=== PATIENT | male | born 1940 ===

== ENCOUNTER 2021-11-03 15:53 | Inpatient (IN) | payer BC, OTHER, SELFPAY ==
[2021-11-03] VITALS (8 sets, daily range): BP systolic 109–139; BP diastolic 56–86; PULSE 75–88; RESP 16–18; TEMP 36.5–36.9; O2SAT 98–100; BMI 19.9
--- NOTE | 2021-11-03 | ECG_ITS ---
Test Reason : ? STROKE Blood Pressure : / mmHG Vent. Rate : 073 BPM Atrial Rate : 073 BPM P-R Int : 126 ms QRS Dur : 080 ms QT Int : 360 ms P-R-T Axes : 025 007 061 degrees QTc Int : 396 ms Normal sinus rhythm Inferior infarct (cited on or before 27-SEP-2003) Abnormal ECG When compared with ECG of 27-SEP-2003 14:19, No significant change was found Referred By: Óscar Pascal Electronically Signed By:TEDDY BROUSSARD
--- NOTE | ~2021-11-03 | CT_ITS ---
EXAMINATION: CT HEAD WITHOUT CONTRAST (STROKE PROTOCOL) CLINICAL INFORMATION: Stroke protocol. Weakness. Fatigue. COMPARISON: None TECHNIQUE: Contiguous axial imaging was performed from the skull base to vertex without intravenous administration of contrast. This CT examination was performed using dose optimization techniques as appropriate, variously including the following: *Automated exposure control *Adjustment of mA and/or kV according to patient size (this includes techniques or standardized protocols for targeted exams where dose is matched to indication/reason for exam; i.e. extremities or head) *Use of iterative reconstruction technique DLP: 587 mGy-cm FINDINGS: There is no evidence of an extra-axial collection. There is no evidence of intra-axial or extra-axial hemorrhage. The ventricles and extra-axial CSF spaces are prominent suggestive of generalized atrophy. There is nonspecific periventricular white matter disease. There is a left basal ganglia or anterior limb internal capsule lacunar infarct. No exams are available for comparison and this is age indeterminate. No other infarct is seen. No mass or mass effect is seen. Review at bone windows is unremarkable. Visualized paranasal sinuses, mastoid air cells and middle ears are clear. CT/CT head for stroke IMPRESSION: Generalized atrophy and nonspecific periventricular white matter disease. 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 No prior exams are available for comparison and this is age indeterminate. This critical result was discussed with Dr Pascal at 4:30 PM on 11/03/2021. It was ascertained that the content and urgency of the report was understood at the time of direct communication.
--- NOTE | 2021-11-03 16:25 | ED_ITS ---
HPI - General Adult General Chief complaint: Altered Mental Status <DAVIDA Green - Last Filed: 11/03/21 21:59> Stated complaint: ?Stroke <DAVIDA Green - Last Filed: 11/03/21 21:59> Time Seen by Provider: 11/03/21 16:10 <DAVIDA Green - Last Filed: 11/03/21 21:59> Source: patient and family <DAVIDA Green - Last Filed: 11/03/21 21:59> Mode of arrival: ambulatory <DAVIDA Green - Last Filed: 11/03/21 21:59> Limitations: no limitations <DAVIDA Green - Last Filed: 11/03/21 21:59> History of Present Illness HPI narrative: This is an 81-year-old male pmhx dementia, diabetes, hypertension presenting to the emergency department with an episode of weakness, shaking, diaphoresis, chest pain that occurred about 45 minutes ago. According to patient patient's family he was sitting down and he suddenly started to feel strange he tells me that at this time he feels a little bit better however he still has a lot of weakness. Tells me that the chest pain was substernal in nature, nonradiating, lasting a few seconds, severe. He tells me that at this time he is only weak, does not have any chest pain. He is a diabetic and they checked his sugar at home and it was normal when this happened. He denies shor tness of breath, nausea, vomiting, fevers, chills, recent upper respiratory infection, vision changes, dizziness. Patient has had ?mini strokes in the past according to family in [place] he had 2 of them. However there presentation was much different than today's presentation. Patient has no history of seizures. <DAVIDA Green Last Filed: 11/03/21 21:59> Onset (ago): minute(s) (45) <DAVIDA Green Last Filed: 11/03/21 21:59> Location: chest <DAVIDA Green Last Filed: 11/03/21 21:59> Radiation: non-radiation <DAVIDA Green - Last Filed: 11/03/21 21:59> Severity: severe <DAVIDA Green - Last Filed: 11/03/21 21:59> Quality: stabbing <DAVIDA Green - Last Filed: 11/03/21 21:59> Pain Consistency: now resolved <DAVIDA Green - Last Filed: 11/03/21 21:59> Relieving factors: none <DAVIDA Green - Last Filed: 11/03/21 21:59> Exacerbating factors: none <DAVIDA Green - Last Filed: 11/03/21 21:59> Associated symptoms: denies other symptoms <DAVIDA Green - Last Filed: 11/03/21 21:59> Treatments prior to arrival: none <DAVIDA Green - Last Filed: 11/03/21 21:59> Related Data Allergies/adverse reactions: Allergies Allergy/AdvReac Type Severity Reaction Status Date / Time Unable to Assess Allergy Verified 11/03/21 16:44 <DAVIDA Green - Last Filed: 11/03/21 21:59> Review of Systems Review of Systems: Constitutional : No Weight loss, No Fever, No Chills, + Fatigue, + Malaise ENT/Mouth : No sore throat, No Rhinorrhea Eyes: No Eye Pain, No Swelling, No Redness Cardiovascular : + Chest Pain, No SOB, No Dyspnea on Exertion, No Orthopnea, No Edema, No Palpitations Respiratory : No Cough, No Sputum, No Wheezing Gastrointestinal : No Nausea, No Vomiting, No Diarrhea, No Constipation, No abdominal Pain, No Hematochezia, No Melena Genitourinary : No Dysuria, No Urinary Frequency, No Hematuria, Musculoskeletal : No joint pain, No Myalgias, No Joint Swelling Skin : No Skin Lesions, No rash Neuro : No Weakness, No Numbness, No Dizziness, No Headache Psych : No Anxiety/Panic, No Depression All other systems reviewed and are negative <DAVIDA Green Last Filed: 11/03/21 21:59> PMFSH Past Medical History Attestation statement: The following information was validated with the patient. <DAVIDA Green - Last Filed: 11/03/21 21:59> Source: old records reviewed and nursing notes reviewed <DAVIDA Green - Last Filed: 11/03/21 21:59> Medical History: Medical History (Updated 11/03/21 @ 21:44 by DAVIDA Green) Dementia Diabetes HTN (hypertension) <DAVIDA Green - Last Filed: 11/03/21 21:59> Social History Social History: Social History Advance Directives: No Advance Directives Information Provided: Yes <DAVIDA Green - Last Filed: 11/03/21 21:59> Physical Exam ED Vital Signs: Vital Signs - 24 hr 11/03/21 16:08 11/03/21 16:42 11/03/21 16:47 Temperature 98.5 F Pulse Rate 75 77 77 Respiratory Rate 18 18 18 Blood Pressure 112/60 109/61 115/56 L Pulse Oximetry 99 98 99 11/03/21 18:15 11/03/21 18:18 11/03/21 18:20 Temperature 97.7 F Pulse Rate 82 81 88 Respiratory Rate 16 Blood Pressure 122/86 137/71 139/68 Pulse Oximetry 100 11/03/21 18:22 Temperature Pulse Rate 83 Respiratory Rate Blood Pressure 135/72 Pulse Oximetry BMI result Body Mass Index 19.9 VSS <DAVIDA Green - Last Filed: 11/03/21 21:59> Vital Signs - 24 hr 11/03/21 16:08 11/03/21 16:42 11/03/21 16:47 Temperature 98.5 F Pulse Rate 75 77 77 Respiratory Rate 18 18 18 Blood Pressure 112/60 109/61 115/56 L Pulse Oximetry 99 98 99 11/03/21 18:15 11/03/21 18:18 11/03/21 18:20 Temperature 97.7 F Pulse Rate 82 81 88 Respiratory Rate 16 Blood Pressure 122/86 137/71 139/68 Pulse Oximetry 100 11/03/21 18:22 Temperature Pulse Rate 83 Respiratory Rate Blood Pressure 135/72 Pulse Oximetry BMI result Body Mass Index 19.9 <Ben Chang MD - Last Filed: 11/03/21 17:22> Appearance: Alert.? Oriented X3.? No acute distress.? Head: Normocephalic, atraumatic, no step-offs or deformities Eyes: Pupils equal, round and reactive to light.? ENT: Pharynx normal.? Neck: Normal inspection.? Neck supple.? CVS: Normal heart rate and rhythm.? Pulses normal.? Respiratory: No respiratory distress.? Breath sounds normal.? Abdomen: Soft and nontender.? Skin: Skin warm and dry.? Normal skin color.? Normal skin turgor.? Extremities: No lower extremity edema.? No calf ttp. Patient diffusely weak. Back: No midline tenderness, no C-spine tenderness, full range of motion, no CVA tenderness bilaterally Neuro: Oriented X 3.? No motor deficit.? No sensory deficit. CN 2-12 intact. Normal [id number], [id number]. <DAVIDA Green - Last Filed: 11/03/21 21:59> Course Reevaluation(s) Reevaluation #1: The event that brought the patient here does not sound like stroke and he has a nonfocal exam. The CT shows age indeterminant left basal ganglia lacunar infarct. <DAVIDA Green - Last Filed: 11/03/21 21:59> The event that brought the patient here does not sound like stroke and he has a nonfocal exam. The CT shows age indeterminant left basal ganglia lacunar infarct. <Ben Chang MD - Last Filed: 11/03/21 17:22> Reevaluation #2: CT results were shared with my attending . Reached out to Neurology who recommends aspirin to find other causative agents. <DAVIDA Green - Last Filed: 11/03/21 21:59> Time: 17:32 <DAVIDA Grene - Last Filed: 11/03/21 21:59> Reevaluation #3: Second trop doubled the delta. Spoke to cardiology about patients case who recommend dose of lovenox. Patient tellls me he still has discomfort in his chest but not pain. Plan to admit patient <DAVIDA Green - Last Filed: 11/03/21 21:59> Time: 21:43 <DAVIDA Green - Last Filed: 11/03/21 21:59> Additional Reevaluation(s): Reports CP completely subsided. Hospitalist will admit patient Dr. Mackaybarbararaffi. <DAVIDA Green - Last Filed: 11/03/21 21:59> Medical Decision Making MDM Narrative Medical decision making narrative: 1610 81 yo m pmhx dementia, diabetes, hypertension presenting to the emergency department with an episode of weakness, shaking, diaphoresis, chest pain that occurred about 45 minutes ago PE significant for generalized weakness. No focal neuro deficits Cerbellar function intact unlikely posterior stroke. Plan- poc, urine, ct head,labs <DAVIDA Green - Last Filed: 11/03/21 21:59> Medical Records Medical records reviewed: Yes I reviewed the patient's medical records. <DAVIDA Green - Last Filed: 11/03/21 21:59> Lab Data Lab results reviewed: Yes I reviewed the patient's lab results. <DAVIDA Green - Last Filed: 11/03/21 21:59> Result diagrams: : 11/03/21 17:01 11/03/21 17:01 <DAVIDA Green - Last Filed: 11/03/21 21:59> Labs: Lab Results 11/03/21 11/03/21 11/03/21 Range/Units 17:01 17:01 17:01 WBC 9.1 (4.8-10.8) X10*3/uL RBC 4.79 (4.60-5.80) X10*6/uL Hgb 14.3 (14.0-18.0) g/dl Hct 45.2 (42.0-52.0) % MCV 94.4 (80.0-98.0) fL MCH 29.9 (27.0-33.0) pg MCHC 31.6 (31.0-36.0) g/dl RDW 15.1 (11.0-16.0) % Plt Count 206 (160-400) X10*3/uL MPV 10.6 (9.4-12.4) fL Immature Gran % (Auto) 0.3 (0.0-0.4) % Neut % (Auto) 77.1 H (45-73) % Lymph % (Auto) 12.4 L (20-40) % [place] % (Auto) 6.7 (2-11) % Eos % (Auto) 3.1 (0-4) % Baso % (Auto) 0.4 (0-2) % Lymph # (Auto) 1.1 L (1.2-4.9) X10*3/uL [place] # (Auto) 0.6 (0.1-1.2) X10*3/uL Eos # (Auto) 0.3 (0.0-0.4) X10*3/uL Baso # (Auto) 0.0 (0.0-0.2) X10*3/uL Abs Immat Gran (auto) 0.03 (0.00-0.03) X10*3/uL Absolute Neuts (auto) 7.0 (2.0-8.3) x10*3/uL Absolute Nucleated RBC 0.000 (0.0-0.012) X10*3/uL Nucleated RBC % (auto) 0.0 (0.0-0.2) /100WBC Sodium 143 (135-145) mmol/L Potassium 4.3 (3.3-5.1) mmol/L Chloride 107 (96-108) mmol/L Carbon Dioxide 26 (22-29) mmol/L Anion Gap 14 (12-20) BUN 26 H (9-16) mg/dL Creatinine 1.09 (0.5-1.4) mg/dL Estim Creat Clear Calc 43.1 Estimated GFR > 60 Random Glucose 147 H (60-115) mg/dL Calcium 10.0 (8.4-10.2) mg/dL Magnesium 2.1 (1.6-2.6) mg/dL Total Bilirubin 0.8 (0.0-1.0) mg/dL AST 23 (5-37) U/L ALT 19 (0-40) U/L Alkaline Phosphatase 83 (39-117) U/L Troponin I High Sens 10.9 (<3.5-35.0) ng/L B-Natriuretic Peptide 53 (<100) pg/mL Total Protein 7.9 (6.5-8.0) g/dL Albumin 3.9 (3.5-5.0) g/dL Urine Color Urine Appearance Urine pH (5.0-8.0) Ur Specific [place] (1.005-1.025) Urine Protein (NEG-TRACE) MG/DL Urine Glucose (UA) (NEG) MG/DL Urine Ketones (NEG) MG/DL Urine Blood (NEG) Urine Nitrite (NEG) Ur Leukocyte Esterase (NEG) COVID-19 ([facility]ALKER) (Negative) COVID-19 Clin Com 11/03/21 11/03/21 11/03/21 Range/Units 17:01 18:08 20:41 WBC (4.8-10.8) X10*3/uL RBC (4.60-5.80) X10*6/uL Hgb (14.0-18.0) g/dl Hct (42.0-52.0) % MCV (80.0-98.0) fL MCH (27.0-33.0) pg MCHC (31.0-36.0) g/dl RDW (11.0-16.0) % Plt Count (160-400) X10*3/uL MPV (9.4-12.4) fL Immature Gran % (Auto) (0.0-0.4) % Neut % (Auto) (45-73) % Lymph % (Auto) (20-40) % [place] % (Auto) (2-11) % Eos % (Auto) (0-4) % Baso % (Auto) (0-2) % Lymph # (Auto) (1.2-4.9) X10*3/uL [place] # (Auto) (0.1-1.2) X10*3/uL Eos # (Auto) (0.0-0.4) X10*3/uL Baso # (Auto) (0.0-0.2) X10*3/uL Abs Immat Gran (auto) (0.00-0.03) X10*3/uL Absolute Neuts (auto) (2.0-8.3) x10*3/uL Absolute Nucleated RBC (0.0-0.012) X10*3/uL Nucleated RBC % (auto) (0.0-0.2) /100WBC Sodium (135-145) mmol/L Potassium (3.3-5.1) mmol/L Chloride (96-108) mmol/L Carbon Dioxide (22-29) mmol/L Anion Gap (12-20) BUN (9-16) mg/dL Creatinine (0.5-1.4) mg/dL Estim Creat Clear Calc Estimated GFR Random Glucose (60-115) mg/dL Calcium (8.4-10.2) mg/dL Magnesium (1.6-2.6) mg/dL Total Bilirubin (0.0-1.0) mg/dL AST (5-37) U/L ALT (0-40) U/L Alkaline Phosphatase (39-117) U/L Troponin I High Sens 39.4 H D (<3.5-35.0) ng/L B-Natriuretic Peptide (<100) pg/mL Total Protein (6.5-8.0) g/dL Albumin (3.5-5.0) g/dL Urine Color YELLOW Urine Appearance CLEAR Urine pH 6.5 (5.0-8.0) Ur Specific [place] 1.020 (1.005-1.025) Urine Protein TRACE (NEG-TRACE) MG/DL Urine Glucose (UA) NEG (NEG) MG/DL Urine Ketones NEG (NEG) MG/DL Urine Blood NEG (NEG) Urine Nitrite NEG (NEG) Ur Leukocyte Esterase NEG (NEG) COVID-19 ([facility]ALKER) Negative (Negative) COVID-19 Clin Com See Note <DAVIDA Green - Last Filed: 11/03/21 21:59> Lab Results 11/03/21 11/03/21 11/03/21 Range/Units 17:01 17:01 17:01 WBC 9.1 (4.8-10.8) X10*3/uL RBC 4.79 (4.60-5.80) X10*6/uL Hgb 14.3 (14.0-18.0) g/dl Hct 45.2 (42.0-52.0) % MCV 94.4 (80.0-98.0) fL MCH 29.9 (27.0-33.0) pg MCHC 31.6 (31.0-36.0) g/dl RDW 15.1 (11.0-16.0) % Plt Count 206 (160-400) X10*3/uL MPV 10.6 (9.4-12.4) fL Immature Gran % (Auto) 0.3 (0.0-0.4) % Neut % (Auto) 77.1 H (45-73) % Lymph % (Auto) 12.4 L (20-40) % [place] % (Auto) 6.7 (2-11) % Eos % (Auto) 3.1 (0-4) % Baso % (Auto) 0.4 (0-2) % Lymph # (Auto) 1.1 L (1.2-4.9) X10*3/uL [place] # (Auto) 0.6 (0.1-1.2) X10*3/uL Eos # (Auto) 0.3 (0.0-0.4) X10*3/uL Baso # (Auto) 0.0 (0.0-0.2) X10*3/uL Abs Immat Gran (auto) 0.03 (0.00-0.03) X10*3/uL Absolute Neuts (auto) 7.0 (2.0-8.3) x10*3/uL Absolute Nucleated RBC 0.000 (0.0-0.012) X10*3/uL Nucleated RBC % (auto) 0.0 (0.0-0.2) /100WBC Sodium 143 (135-145) mmol/L Potassium 4.3 (3.3-5.1) mmol/L Chloride 107 (96-108) mmol/L Carbon Dioxide 26 (22-29) mmol/L Anion Gap 14 (12-20) BUN 26 H (9-16) mg/dL Creatinine 1.09 (0.5-1.4) mg/dL Estim Creat Clear Calc 43.1 Estimated GFR > 60 Random Glucose 147 H (60-115) mg/dL Calcium 10.0 (8.4-10.2) mg/dL Magnesium 2.1 (1.6-2.6) mg/dL Total Bilirubin 0.8 (0.0-1.0) mg/dL AST 23 (5-37) U/L ALT 19 (0-40) U/L Alkaline Phosphatase 83 (39-117) U/L Troponin I High Sens 10.9 (<3.5-35.0) ng/L B-Natriuretic Peptide 53 (<100) pg/mL Total Protein 7.9 (6.5-8.0) g/dL Albumin 3.9 (3.5-5.0) g/dL Urine Color Urine Appearance Urine pH (5.0-8.0) Ur Specific [place] (1.005-1.025) Urine Protein (NEG-TRACE) MG/DL Urine Glucose (UA) (NEG) MG/DL Urine Ketones (NEG) MG/DL Urine Blood (NEG) Urine Nitrite (NEG) Ur Leukocyte Esterase (NEG) COVID-19 ([facility]ALKER) (Negative) COVID-19 Clin Com 11/03/21 11/03/21 11/03/21 Range/Units 17:01 18:08 20:41 WBC (4.8-10.8) X10*3/uL RBC (4.60-5.80) X10*6/uL Hgb (14.0-18.0) g/dl Hct (42.0-52.0) % MCV (80.0-98.0) fL MCH (27.0-33.0) pg MCHC (31.0-36.0) g/dl RDW (11.0-16.0) % Plt Count (160-400) X10*3/uL MPV (9.4-12.4) fL Immature Gran % (Auto) (0.0-0.4) % Neut % (Auto) (45-73) % Lymph % (Auto) (20-40) % [place] % (Auto) (2-11) % Eos % (Auto) (0-4) % Baso % (Auto) (0-2) % Lymph # (Auto) (1.2-4.9) X10*3/uL [place] # (Auto) (0.1-1.2) X10*3/uL Eos # (Auto) (0.0-0.4) X10*3/uL Baso # (Auto) (0.0-0.2) X10*3/uL Abs Immat Gran (auto) (0.00-0.03) X10*3/uL Absolute Neuts (auto) (2.0-8.3) x10*3/uL Absolute Nucleated RBC (0.0-0.012) X10*3/uL Nucleated RBC % (auto) (0.0-0.2) /100WBC Sodium (135-145) mmol/L Potassium (3.3-5.1) mmol/L Chloride (96-108) mmol/L Carbon Dioxide (22-29) mmol/L Anion Gap (12-20) BUN (9-16) mg/dL Creatinine (0.5-1.4) mg/dL Estim Creat Clear Calc Estimated GFR Random Glucose (60-115) mg/dL Calcium (8.4-10.2) mg/dL Magnesium (1.6-2.6) mg/dL Total Bilirubin (0.0-1.0) mg/dL AST (5-37) U/L ALT (0-40) U/L Alkaline Phosphatase (39-117) U/L Troponin I High Sens 39.4 H D (<3.5-35.0) ng/L B-Natriuretic Peptide (<100) pg/mL Total Protein (6.5-8.0) g/dL Albumin (3.5-5.0) g/dL Urine Color YELLOW Urine Appearance CLEAR Urine pH 6.5 (5.0-8.0) Ur Specific [place] 1.020 (1.005-1.025) Urine Protein TRACE (NEG-TRACE) MG/DL Urine Glucose (UA) NEG (NEG) MG/DL Urine Ketones NEG (NEG) MG/DL Urine Blood NEG (NEG) Urine Nitrite NEG (NEG) Ur Leukocyte Esterase NEG (NEG) COVID-19 ([facility]ALKER) Negative (Negative) COVID-19 Clin Com See Note <Ben Chang MD - Last Filed: 11/03/21 17:22> Critical Care Time Critical Care Time Critical Care Time: No <DAVIDA Green - Last Filed: 11/03/21 21:59> Discharge Plan Discharge Clinical Impression: Weakness, Chest pressure <DAVIDA Green - Last Filed: 11/03/21 21:59> Patient Disposition: Admitted As Inpatient <DAVIDA Green - Last Filed: 11/03/21 21:59> Instructions: Weakness (ED) <DAVIDA Green - Last Filed: 11/03/21 21:59> Additional Instructions: Take your medications as prescribed. If you were prescribed antibiotics t rosa, it is important that you take your medication to their entirety, do not skip any doses, do not finish them early. Follow-up with your primary care provider this week. Follow-up with Neurology. Return to the emergency department with new or worsening symptoms. Such as fevers, chills, chest pain, shortness of breath, nausea, vomiting, dizziness, headache, vision changes, lethargy In case of emergency call 911 <DAVIDA Green - Last Filed: 11/03/21 21:59> Referrals: Jazmin Rosenbaum MD [Primary Care Provider] - 2 days Heydi Coronado MD [Physician] - 2 days <DAVIDA Green - Last Filed: 11/03/21 21:59> Stand Alone Forms: Work/School Release <DAVIDA Green - Last Filed: 11/03/21 21:59>
[2021-11-03 17:08] LABS: MANUAL DIFF FLAG NO
[2021-11-03 17:11] LABS: Basophils Percent Auto 0.4 % (0-2); Eosinophils Absolute Auto 0.3 X10*3/uL (0.0-0.4); Eosinophils Percent Auto 3.1 % (0-4); Hematocrit 45.2 % (42.0-52.0); Hemoglobin 14.3 g/dl (14.0-18.0); Imm Gran Abs Auto 0.03 X10*3/uL (0.00-0.03); Imm Gran Pct Auto 0.3 % (0.0-0.4); Lymphocytes Absolute Auto 1.1 X10*3/uL (1.2-4.9); Lymphocytes Percent Auto 12.4 % (20-40); Mean Corpuscular HGB Conc 31.6 g/dl (31.0-36.0); Mean Corpuscular Hemoglobin 29.9 pg (27.0-33.0); Mean Corpuscular Volume 94.4 fL (80.0-98.0); Mean Platelet Volume 10.6 fL (9.4-12.4); Monocytes Absolute Auto 0.6 X10*3/uL (0.1-1.2); Monocytes Percent Auto 6.7 % (2-11); Neutrophils Percent Auto 77.1 % (45-73); Platelet Count 206 X10*3/uL (160-400); Red Blood Count 4.79 X10*6/uL (4.60-5.80); Red Cell Distribution Width 15.1 % (11.0-16.0); White Blood Count 9.1 X10*3/uL (4.8-10.8)
--- NOTE | 2021-11-03 17:26 | PC.NURSE ---
DR CARR RETURNS CALL @ THIS TIME LIANNA TAKES OVER CALL RIGHT AWAY
[2021-11-03 17:31] LABS: COVID-19 Test Negative (Negative); IDNOW Serial# 08D9AD1C
[2021-11-03 17:37] LABS: Alanine Aminotransferase 19 U/L (0-40); Albumin Level 3.9 g/dL (3.5-5.0); Alkaline Phosphatase 83 U/L (39-117); Anion Gap 14 (12-20); Aspartate Amino Transferase 23 U/L (5-37); Bilirubin Total 0.8 mg/dL (0.0-1.0); Blood Urea Nitrogen 26 mg/dL (9-16); Carbon Dioxide 26 mmol/L (22-29); Chloride 107 mmol/L (96-108); Creatinine Clr Calc Pharmacy 43.1; Estimated Glomerular Filt Rate > 60; Glucose Random 147 mg/dL (60-115); Magnesium 2.1 mg/dL (1.6-2.6); Potassium 4.3 mmol/L (3.3-5.1); Sodium 143 mmol/L (135-145); Total Protein 7.9 g/dL (6.5-8.0)
[2021-11-03 17:43] LABS: B Type Natriuretic Peptide 53 pg/mL (<100); Troponin-I High Sensitivity 10.9 ng/L (<3.5-35.0)
[2021-11-03] MEDS: Aspirin Enteric Coated 325 MG TABLET.DR PO (17:49)
[2021-11-03] MEDS: 0.9 % Sodium Chloride 1,000 ML 999 ML IV (17:51)
[2021-11-03 18:15] LABS: Appearance Urine CLEAR; Color Urine YELLOW; Glucose Urine UA NEG (NEG); Leukocyte Esterase Urine NEG (NEG); Nitrite Urine NEG (NEG); PH 6.5 (5.0-8.0); Urine Blood NEG (NEG); Urine Ketones NEG (NEG); Urine Protein TRACE MG/DL (NEG-TRACE)
[2021-11-03 21:11] LABS: Troponin-I High Sensitivity 39.4 ng/L (<3.5-35.0)
--- NOTE | 2021-11-03 21:15 | ECG_ITS ---
Test Reason : CP/REPEAT Blood Pressure : / mmHG Vent. Rate : 078 BPM Atrial Rate : 078 BPM P-R Int : 120 ms QRS Dur : 082 ms QT Int : 370 ms P-R-T Axes : -08 -22 029 degrees QTc Int : 421 ms Normal sinus rhythm Inferior infarct (cited on or before 27-SEP-2003) Abnormal ECG When compared with ECG of 03-NOV-2021 16:04, No significant change was found Referred By: Óscar Pascal Electronically Signed By:TEDDY BROUSSARD
--- NOTE | 2021-11-03 22:09 | PM.IMHP ---
History of Present Illness Date of Service: 11/03/21 Chief Complaint: Chest pain 81-year-old male with a past medical history of hypertension, diabetes presented to the hospital with a chief complaint of chest pain. Patient is provided with the patient, patient's family at bedside. Reportedly patient had chest pain started around 15:15, chest pain 80s pressure-like in nature, nonradiating, associated with nausea, diaphoresis; denies any lightheadedness or dizziness. Symptoms lasted for about an hour. Came to the ER for further evaluation. Denies any chest pain at the time of entry. Denies any fever chills cough. Denies any urinary symptoms. Review of all other systems is negative except mentioned above ER course: Per ER team patient initially complained of mild chest discomfort; EKGs x2 were negative; spoke to Cardiology Dr. Quinones suggested Lovenox. Patient troponins were 10.9 followed by 39.4. Patient was given aspirin 325 mg. [facility] Medical History (Updated 11/03/21 @ 22:09 by Chencho Chaney MD) Dementia Diabetes HTN (hypertension) Pertinent family history: Reviewed Social History Advance Directives: No Advance Directives Information Provided: Yes Meds Allergies Allergy/AdvReac Type Severity Reaction Status Date / Time Unable to Assess Allergy Verified 11/03/21 16:44 Physical Exam Vital Signs and Narrative: Vital Signs: Last Vital Signs Temp 97.7 F 11/03/21 18:15 Pulse 83 11/03/21 18:22 Resp 16 11/03/21 18:15 BP 135/72 11/03/21 18:22 Pulse Ox 100 11/03/21 18:15 BMI result Body Mass Index 19.9 Gen: Appears be in no acute distress HEENT: NCAT, Moist mucosa. Pulmonary: Vesicular breath sounds, fair air entry CVS: Normal S1-S2 Abdomen: BS+, Soft, Nontender Extremities: Warm well perfused Neuro: Alert and awake. Results Labs CBC and Chem 7: 11/03/21 17:01 11/03/21 17:01 Labs: Laboratory Results - last 24 hr 11/03/21 11/03/21 11/03/21 17:01 17:01 17:01 MCV 94.4 MCH 29.9 MCHC 31.6 RDW 15.1 Plt Count 206 MPV 10.6 Immature Gran % (Auto) 0.3 Neut % (Auto) 77.1 H Lymph % (Auto) 12.4 L [place] % (Auto) 6.7 Eos % (Auto) 3.1 Baso % (Auto) 0.4 Lymph # (Auto) 1.1 L [place] # (Auto) 0.6 Eos # (Auto) 0.3 Baso # (Auto) 0.0 Abs Immat Gran (auto) 0.03 Absolute Neuts (auto) 7.0 Absolute Nucleated RBC 0.000 Nucleated RBC % (auto) 0.0 Anion Gap 14 Estim Creat Clear Calc 43.1 Estimated GFR > 60 Random Glucose 147 H Calcium 10.0 Magnesium 2.1 Total Bilirubin 0.8 AST 23 ALT 19 Alkaline Phosphatase 83 B-Natriuretic Peptide 53 Total Protein 7.9 Albumin 3.9 Urine Color Urine Appearance Urine pH Ur Specific [place] Urine Protein Urine Glucose (UA) Urine Ketones Urine Blood Urine Nitrite Ur Leukocyte Esterase COVID-19 (WALKER) COVID-19 [employer] Com 11/03/21 11/03/21 17:01 18:08 MCV MCH MCHC RDW Plt Count MPV Immature Gran % (Auto) Neut % (Auto) Lymph % (Auto) [place] % (Auto) Eos % (Auto) Baso % (Auto) Lymph # (Auto) [place] # (Auto) Eos # (Auto) Baso # (Auto) Abs Immat Gran (auto) Absolute Neuts (auto) Absolute Nucleated RBC Nucleated RBC % (auto) Anion Gap Estim Creat Clear Calc Estimated GFR Random Glucose Calcium Magnesium Total Bilirubin AST ALT Alkaline Phosphatase B-Natriuretic Peptide Total Protein Albumin Urine Color YELLOW Urine Appearance CLEAR Urine pH 6.5 Ur Specific [place] 1.020 Urine Protein TRACE Urine Glucose (UA) NEG Urine Ketones NEG Urine Blood NEG Urine Nitrite NEG Ur Leukocyte Esterase NEG COVID-19 (WALKER) Negative COVID-19 Clin Com See Note Imaging Radiologist's Impressions: Impressions Head CT 11/03/21 16:20 IMPRESSION: Generalized atrophy and nonspecific periventricular white matter disease. 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 No prior exams are available for comparison and this is age indeterminate. This critical result was discussed with Dr Pascal at 4:30 PM on 11/03/2021. It was ascertained that the content and urgency of the report was understood at the time of direct communication. Assessment and Plan (1) Chest pressure: Status: Acute (2) Diabetes: Status: Acute Plan 81-year-old male with a past medical history of hypertension, diabetes, history of TIA presented to the hospital today with a chief complaint of chest pain. Chest pain: Atypical in nature. Currently resolved. Concern for NSTEMI Troponins elevated from 10.9-39.4. EKG nonischemic Telemetry Patient receiving Lovenox at therapeutic dose Cardiology aware of the patient Echocardiogram Sublingual nitroglycerin p.r.n. Continue aspirin 81 mg Start the patient on Lipitor, metoprolol 12.5 mg b.i.d. History of diabetes: Insulin sliding scale DVT prophylaxis: Patient on Lovenox Code status: Full code. Confirmed with the patient and patient's family at bedside as well. Quality Stroke Does the patient have a stroke diagnosis?: No VTE Prior VTE?: No VTE Risk Level:: Medical - moderate - high VTE Device Contraindication: Treatment Not Indicated VTE Drug Contraindication: N/A - Med Ordered
[2021-11-03 22:26] LABS: Hematocrit 41.9 % (42.0-52.0); Hemoglobin 13.2 g/dl (14.0-18.0); Mean Corpuscular HGB Conc 31.5 g/dl (31.0-36.0); Mean Corpuscular Hemoglobin 29.8 pg (27.0-33.0); Mean Corpuscular Volume 94.6 fL (80.0-98.0); Mean Platelet Volume 10.9 fL (9.4-12.4); Platelet Count 158 X10*3/uL (160-400); Red Blood Count 4.43 X10*6/uL (4.60-5.80); White Blood Count 9.2 X10*3/uL (4.8-10.8)
--- NOTE | 2021-11-03 22:27 | MHC.CM.PN ---
CM met with admitted patient and family. Pt arrived from [facility]. with his in June to be cared for by his daughter and son-in-law. They were no longer able to remain independent in their home. HCP reviewed and completed per protocol. Heena Mendosa ([phone]) is HCP/daughter. She is Nepali speaking. voice professor used. Copies given and HCP uploaded into [employer] and [facility] [employer]. IMM reviewed and signed by HCP on 11/03/2021@2220. Son-in-law Christopher Mendosa speaks [employer]. He is a food consultant. The patient and his live on the first floor, with a bathroom on that floor. Pt had Medicare and Medicaid in .. Currently, Christopher is working on [employer] application, but tells CM he is very overwhelmed with the enormity of the application. Given financial services flyer and pt face sheet and pertinent information faxed to financial services for assistance with completion. Pt has established care with a PCP at [facility], Jazmin Rosenbaum. Pt has a walker and cane, however does not use them often. Pt has no services. Son-in-law has contact with [facility]. D/C plan is home. VNA services depending on hospital course. No referrals sent. Family will provide transportation home. CM to follow for d/c needs.
[2021-11-03 22:35] LABS: Prothrombin Time 11.8 SEC (9.9-13.0)
[2021-11-03 22:37] LABS: D Dimer High Sensitivity 186 NG/ML
[2021-11-03 22:38] LABS: Partial Thromboplastin Time 25.4 SEC (24.1-38.0)
--- NOTE | 2021-11-03 22:46 | PHA.MEDREC ---
Pharmacy Consult ? Medication Reconciliation Pharmacy has completed the medication reconciliation. Spoke with family who were unsure of names of medications but could tell me he was on 7 medications and what they were used for. All medications filled at [facility] pharmacy, called [facility] for list.
[2021-11-03 22:52] LABS: Troponin-I High Sensitivity 43.3 ng/L (<3.5-35.0)
[2021-11-03] MEDS: Enoxaparin Sodium 100 MG/ML SYRINGE 60 MG SUBCUT (23:04)
[2021-11-03 23:05] LABS: Estimated Average Glucose 128 mg/dL; Hemoglobin A1c % 6.1 %
[2021-11-03] MEDS: 0.9 % Sodium Chloride Flush 3 ML SYRINGE IVFLUSH (23:06)
--- NOTE | 2021-11-03 23:41 | PC.NURSE ---
Pt alert and confused, oriented to self only. Per family this is baseline for patient. Monegasque speaking only. IV in left forearm intact and flushing well. Vitals stable. Denies pain, denies chest pain at this time. Pt noted to be steady on his feet, stand-by assist required for safety. Pt urinated in urinal without issues. Pt transferred to [place] [id number] with tech in wheelchair, remains on tele monitor. Report given to GREGOR Eli.
[2021-11-04] MEDS: OLANZapine 5 MG TABLET 2.5 MG PO (01:04)
--- NOTE | 2021-11-04 02:16 | PC.NURSE ---
pt is confused at time and wanting to see his . pt medicated per mar. Pt redirected and placed back in bed.
[2021-11-04 03:30] VITALS: BP 140/76; PULSE 82; RESP 18; TEMP 36.7; O2SAT 98
--- NOTE | 2021-11-04 04:58 | PC.NURSE ---
RECEIVED FROM MAIN ED TO OVERFLOW BED 5..AWAKE...QUEZADA..DISORIENTED TO PLACE/EVENTS...STATED WANTED TO WALK HOME TO SEE ..FREQUENTLY CLIMBING OOB..PULLING OFF MONITOR LEADS..HOSPITALIST UPDATED...ZYPREXA 2/5 MG PO ORDERED/GIVEN....REMAINS CONFUSED...PATIENT BOLTED PAST PAIN MANAGEMENT NURSE AND RAN OUT OF OVERFLOW UNIT...SPECIMEN PREPARATION ASSISTANT AND SECURITY WITH PATIENT AND ESCORTED BACK TO BED...1:1 SITTER AT BEDSIDE...GRADUALLY RESTFUL...CURRENTLY DOZING...NSR..NO ECTOPY..NO DISTRESS
[2021-11-04 06:13] LABS: MANUAL DIFF FLAG NO
[2021-11-04 06:16] LABS: Basophils Percent Auto 0.3 % (0-2); Eosinophils Absolute Auto 0.5 X10*3/uL (0.0-0.4); Eosinophils Percent Auto 5.2 % (0-4); Hematocrit 37.4 % (42.0-52.0); Hemoglobin 11.9 g/dl (14.0-18.0); Imm Gran Abs Auto 0.01 X10*3/uL (0.00-0.03); Imm Gran Pct Auto 0.1 % (0.0-0.4); Lymphocytes Absolute Auto 2.8 X10*3/uL (1.2-4.9); Lymphocytes Percent Auto 31.1 % (20-40); Mean Corpuscular HGB Conc 31.8 g/dl (31.0-36.0); Mean Corpuscular Hemoglobin 29.6 pg (27.0-33.0); Mean Platelet Volume 10.5 fL (9.4-12.4); Monocytes Absolute Auto 0.7 X10*3/uL (0.1-1.2); Monocytes Percent Auto 8.2 % (2-11); Neutrophils Absolute Auto 4.9 x10*3/uL (2.0-8.3); Neutrophils Percent Auto 55.1 % (45-73); Platelet Count 192 X10*3/uL (160-400); Red Blood Count 4.02 X10*6/uL (4.60-5.80); Red Cell Distribution Width 15.1 % (11.0-16.0); White Blood Count 8.9 X10*3/uL (4.8-10.8)
[2021-11-04 06:22] VITALS: PULSE 73; RESP 14
[2021-11-04 06:39] LABS: Anion Gap 10 (12-20); Blood Urea Nitrogen 23 mg/dL (9-16); Calcium 9.3 mg/dL (8.4-10.2); Carbon Dioxide 26 mmol/L (22-29); Chloride 110 mmol/L (96-108); Cholesterol 121 mg/dL; Creatinine Clr Calc Pharmacy 51.1; Estimated Glomerular Filt Rate > 60; Glucose Random 101 mg/dL (60-115); HDL Cholesterol 36 mg/dL; LDL Cholesterol Calculated 68 mg/dl; Potassium 4.2 mmol/L (3.3-5.1); Sodium 142 mmol/L (135-145); Triglycerides 87 mg/dL
[2021-11-04 07:55] LABS: Glucose, Whole Blood 161 mg/dL (60-115)
--- NOTE | 2021-11-04 09:00 | CA_ITS ---
Transthoracic Echocardiogram Patient (Last, First, Middle): Toni Anna, Gender: Male Date of : 1940 Age: 81 Procedure Date: 11/04/2021 Procedure Type: Transthoracic Echocardiogram Location: ER Height: 172.72 cm Weight: 58.97 kg BSA: 1.70 m2 Heart Rate: bpm BP: 140 / 76 mmHg Satellite Manager: Referring MD: Chencho Chaney MD Symptoms: Chest pain Study Quality: Fair ECG Rhythm: Sinus Conclusions: - Study limited by patient cooperation/mental status. - The left ventricular systolic function is normal. The visually estimated ejection fraction is between 60-65%. - No obvious valvular pathology seen on this study. Findings Left Ventricle Normal left ventricular cavity size. There is mildly increased left ventricular wall thickness. The left ventricular systolic function is normal. The visually estimated ejection fraction is between 60-65%. Regional wall motion abnormalities can not be excluded due to suboptimal endocardial definition. Diastolic function is normal for age. Right Ventricle Normal right ventricular cavity size and systolic function. Atria Both atria are normal in size. Aortic Valve The aortic valve was not well visualized. There is no aortic valve stenosis. The mean gradient is 2 mmHg. There is no aortic valve regurgitation. Mitral Valve The mitral valve appears normal. There is no mitral valve regurgitation. There is no mitral valve stenosis. Pulmonic Valve The pulmonic valve was not well visualized. Tricuspid Valve There is trace tricuspid valve regurgitation. The pulmonary artery systolic pressure is normal. Great Vessels The aorta was not well visualized. The sinuses of valsalva is normal in size. Venous The inferior vena cava was not well visualized. Pericardium/Pleural There is no evidence of pericardial effusion. Prior Study Comparison No prior study available for comparison. Recommendations, Care & Conclusions No obvious valvular pathology seen on this study. Measurements 2D Linear Measurements IVSd: 1.24 0.6-0.9/0.6-1.0 cm LVIDd: 3.84 3.9-5.3/4.2-5.9 cm LVIDd Index: 2.26 2.4-3.2/2.2-3.1 cm/m2 LVIDs: 2.53 2.0-3.6 cm LVPWd: 1.20 0.7-1.1 cm LA Diam: 3.20 2.7-3.8/3.0-4.0 cm LAIDs Index: 1.88 1.5-2.3 cm/m2 LV Mass: 198.69 67-162/88-224 g LV Mass Index: 116.88 43-95/49-115 g/m2 LVOT Diam: 2.00 3.0+(-)1.3 cm Mitral Valve MV Pk E: 0.57 MV PK A: 0.77 MV Decel Time: 173.00 E/A: 0.70 E'Lateral: 7.29 E'Medial: 5.33 E/E' Med: 10.80 E/E' Lat: 7.90 PHT: 51.00 MVA PHT: 4.31 Decel [place]: 3.32 Aortic Valve AoV Pk Wilber: 1.04 AoV Mn Wilber: 0.64 AoV VTI: 0.25 AoV Pk Grad: 4.00 Aov Mn Grad: 2.00 BREA Cont.VTI: 2.12 LVOT LVOT Pk Wilber: 0.69 LVOT Mn Wilber: 0.44 LVOT VTI: 0.17 LVOT Pk Grad: 2.00 LVOT Mn Grad: 1.00 LVOT Diam: 2.00 LVOT Area: 3.14 Diastolic Function MV Pk E: 0.57 MV Pk A: 0.77 E/A: 0.70 E'Medial: 5.33 E/E' Med: 10.80 E' Laterial: 7.29 E/E' Lat: 7.90 Right Ventricle TAPSE (mm): 22.00 Tricuspid Valve TR Pk Wilber: 2.13 TR Pk Grad: 18.00 Pulmonary Valve PV Pk Wilber: 0.49 Peak PV Grad: 1.00 Updated in Other Vendor System with Status of Final Easton Quinones MD electronically signed on 11/04/2021 11:29:02 AM with status of Final
[2021-11-04 09:01] LABS: Glucose, Whole Blood 90 mg/dL (60-115)
--- NOTE | 2021-11-04 10:04 | PC.NURSE ---
Pt confused, awake and jumping out of bed. Removed IV, removed tele monitor leads. Refusing to get back into bed or alarmable chair. Hitting staff and spitting on floor. MD notified. will continue to monitor.
--- NOTE | 2021-11-04 10:31 | P.CONCA_ITS ---
History of Present Illness History of Present Illness Date of Service: 11/04/21 Chief complaint: NSTEMI Narrative: This is a cardiology consultation regarding chest pain and NSTEMI. It seems that he has a history of diabetes hypertension. He presented to the ER with complaints of chest pain. [place] like a pressure and had nausea and diaphoresis. Patient himself is nonverbal and not really able to say much at all at this time. He has not spoken even one word even with an lighting director. He shakes his head to questions but not clear how reliable that is. Review of Systems Review of Systems: Unable to obtain [facility] Past Medical History Medical History (Updated 11/04/21 @ 10:35 by Easton Quinones MD) Dementia Diabetes HTN (hypertension) Family History Pertinent family history: Unable to obtain Social History Social History Alcohol intake: unknown Patient Tobacco Use Status: Tobacco use Unknown Use of substances other than those prescribed or required for medical reasons: Unknown Advance Directives: No Advance Directives Information Provided: Yes service: No Current occupational status: retired [employer] Allergies Allergy/AdvReac Type Severity Reaction Status Date / Time Unable to Assess Allergy Verified 11/03/21 16:44 Active Medications: Current Medications Acetaminophen (Acetaminophen 325 Mg Tablet) 650 mg PO Q6H PRN PRN Reason: Pain, Mild (Pain Scale 1-3) Aspirin (Aspirin 81 Mg Tab.Chew) 81 mg PO DAILY JEAN Atorvastatin Calcium (Atorvastatin Calcium 80 Mg Tablet) 80 mg PO BEDTIME JEAN Dextrose (Dextrose 50 % 25 Gm/50 Ml Vial) 25 gm IVPUSH Q15M PRN; Protocol PRN Reason: per Hypoglycemia Standing Ord. Enoxaparin Sodium (Enoxaparin Sodium 100 Mg/Ml Syringe) 60 mg SUBCUT Q12H [facility] Last Admin: 11/03/21 23:04 Dose: 60 mg Documented by: Glucose (Glucose Gel 15 Gm Gel..Gram.) 15 gm PO Q15M PRN; Protocol PRN Reason: per Hypoglycemia Standing Ord. Insulin Human Lispro (Insulin Lispro 100 Unit/Ml 3 Ml Vial) 0 unit SUBCUT QIDACHS [facility]; Protocol Last Admin: 11/04/21 09:10 Dose: Not Given Documented by: Melatonin (Melatonin 3 Mg Tablet) 6 mg PO BEDTIME PRN PRN Reason: Insomnia Metoprolol Tartrate (Metoprolol Tartrate 12.5 Mg Halftab) 12.5 mg PO BID [facility]; Protocol Nitroglycerin (Nitroglycerin 0.4 Mg Tab.Subl) 0.4 mg SUBLINGUAL Q5MX3 PRN PRN Reason: Chest pain Senna (Sennosides 8.6 Mg Tablet) 17.2 mg PO BEDTIME PRN PRN Reason: Constipation Sodium Chloride (0.9 % Sodium Chloride Flush 3 Ml Syringe) 3 ml IVFLUSH QSHIFT [facility] Last Admin: 11/03/21 23:06 Dose: 3 ml Documented by: Home Medications Medication Instructions Recorded Confirmed Last Taken Type atorvastatin 40 mg tablet (Lipitor) 40 mg PO BEDTIME 11/03/21 11/03/21 11/02/21 History cyanocobalamin (vitamin B-12) 1,000 mcg PO DAILY 11/03/21 11/03/21 11/03/21 History 1,000 mcg tablet donepezil 10 mg tablet (Aricept) 10 mg PO BEDTIME 11/03/21 11/03/21 11/02/21 History enalapril maleate 5 mg tablet 5 mg PO DAILY 11/03/21 11/03/21 11/03/21 History famotidine 20 mg tablet (Pepcid) 20 mg PO BID 11/03/21 11/03/21 11/03/21 History memantine 5 mg tablet 5 mg PO BID 11/03/21 11/03/21 11/03/21 History metformin 850 mg tablet 850 mg PO BID@0900,1700 11/03/21 11/03/21 11/03/21 History Physical Exam Vital Signs: Vital Signs: Last Vital Signs Temp 98.1 F 11/04/21 03:30 Pulse 73 11/04/21 06:22 Resp 14 11/04/21 06:22 BP 140/76 H 11/04/21 03:30 Pulse Ox 98 11/04/21 03:30 BMI result Body Mass Index 19.9 Const: General: comfortable HENMT: Other: Unremarkable Neck: Neck: Yes normal visual inspection Chest: Chest palpation & inspection: normal inspection of the chest Resp: Auscultation: clear to auscultation bilaterally Cardio: Palpation: normal PMI Heart sounds: S1 normal heart sound present, S2 normal heart sound present, no gallops, no murmurs and no rubs GI: Palpation (GI): Soft to palpation Back/Spine/Pelvis: Other: unremarkable Skin: Lesions: other Neuro: General: other Extrem: General: Yes other Psych: Mental Status: other Objective Labs and Meds Result diagrams: 11/04/21 05:58 11/04/21 05:58 Lab results: Laboratory Results - last 24 hr 11/03/21 11/03/21 11/03/21 16:04 17:01 17:01 WBC 9.1 RBC 4.79 Hgb 14.3 Hct 45.2 MCV 94.4 MCH 29.9 MCHC 31.6 RDW 15.1 Plt Count 206 MPV 10.6 Immature Gran % (Auto) 0.3 Neut % (Auto) 77.1 H Lymph % (Auto) 12.4 L [place] % (Auto) 6.7 Eos % (Auto) 3.1 Baso % (Auto) 0.4 Lymph # (Auto) 1.1 L [place] # (Auto) 0.6 Eos # (Auto) 0.3 Baso # (Auto) 0.0 Abs Immat Gran (auto) 0.03 Absolute Neuts (auto) 7.0 Absolute Nucleated RBC 0.000 Nucleated RBC % (auto) 0.0 PT INR APTT D-Dimer High Sensitivty Sodium 143 Potassium 4.3 Chloride 107 Carbon Dioxide 26 Anion Gap 14 BUN 26 H Creatinine 1.09 Estim Creat Clear Calc 43.1 Estimated GFR > 60 POC Glucose 161 H Random Glucose 147 H Estimat Average Glucose Hemoglobin A1c % Calcium 10.0 Magnesium 2.1 Total Bilirubin 0.8 AST 23 ALT 19 Alkaline Phosphatase 83 Troponin I High Sens B-Natriuretic Peptide Total Protein 7.9 Albumin 3.9 Triglycerides Cholesterol LDL Cholesterol, Calc HDL Cholesterol Urine Color Urine Appearance Urine pH Ur Specific [place] Urine Protein Urine Glucose (UA) Urine Ketones Urine Blood Urine Nitrite Ur Leukocyte Esterase COVID-19 ([facility]) COVID-19 Clin Com 11/03/21 11/03/21 11/03/21 17:01 17:01 18:08 WBC RBC Hgb Hct MCV MCH MCHC RDW Plt Count MPV Immature Gran % (Auto) Neut % (Auto) Lymph % (Auto) [place] % (Auto) Eos % (Auto) Baso % (Auto) Lymph # (Auto) [place] # (Auto) Eos # (Auto) Baso # (Auto) Abs Immat Gran (auto) Absolute Neuts (auto) Absolute Nucleated RBC Nucleated RBC % (auto) PT INR APTT D-Dimer High Sensitivty Sodium Potassium Chloride Carbon Dioxide Anion Gap BUN Creatinine Estim Creat Clear Calc Estimated GFR POC Glucose Random Glucose Estimat Average Glucose Hemoglobin A1c % Calcium Magnesium Total Bilirubin AST ALT Alkaline Phosphatase Troponin I High Sens 10.9 B-Natriuretic Peptide 53 Total Protein Albumin Triglycerides Cholesterol LDL Cholesterol, Calc HDL Cholesterol Urine Color YELLOW Urine Appearance CLEAR Urine pH 6.5 Ur Specific [place] 1.020 Urine Protein TRACE Urine Glucose (UA) NEG Urine Ketones NEG Urine Blood NEG Urine Nitrite NEG Ur Leukocyte Esterase NEG COVID-19 ([facility]) Negative COVID-19 Clin Com See Note 11/03/21 11/03/21 11/03/21 20:41 22:16 22:16 WBC 9.2 RBC 4.43 L Hgb 13.2 L Hct 41.9 L MCV 94.6 MCH 29.8 MCHC 31.5 RDW 15.0 Plt Count 158 L MPV 10.9 Immature Gran % (Auto) Neut % (Auto) Lymph % (Auto) [place] % (Auto) Eos % (Auto) Baso % (Auto) Lymph # (Auto) [place] # (Auto) Eos # (Auto) Baso # (Auto) Abs Immat Gran (auto) Absolute Neuts (auto) Absolute Nucleated RBC 0.000 Nucleated RBC % (auto) 0.0 PT INR APTT D-Dimer High Sensitivty 186 Sodium Potassium Chloride Carbon Dioxide Anion Gap BUN Creatinine Estim Creat Clear Calc Estimated GFR POC Glucose Random Glucose Estimat Average Glucose Hemoglobin A1c % Calcium Magnesium Total Bilirubin AST ALT Alkaline Phosphatase Troponin I High Sens 39.4 H D B-Natriuretic Peptide Total Protein Albumin Triglycerides Cholesterol LDL Cholesterol, Calc HDL Cholesterol Urine Color Urine Appearance Urine pH Ur Specific [place] Urine Protein Urine Glucose (UA) Urine Ketones Urine Blood Urine Nitrite Ur Leukocyte Esterase COVID-19 ([facility]) COVID-19 [employer] Com 11/03/21 11/03/21 11/03/21 22:16 22:16 22:16 WBC RBC Hgb Hct MCV MCH MCHC RDW Plt Count MPV Immature Gran % (Auto) Neut % (Auto) Lymph % (Auto) [place] % (Auto) Eos % (Auto) Baso % (Auto) Lymph # (Auto) [place] # (Auto) Eos # (Auto) Baso # (Auto) Abs Immat Gran (auto) Absolute Neuts (auto) Absolute Nucleated RBC Nucleated RBC % (auto) PT 11.8 INR 1.0 APTT 25.4 D-Dimer High Sensitivty Sodium Potassium Chloride Carbon Dioxide Anion Gap BUN Creatinine Estim Creat Clear Calc Estimated GFR POC Glucose Random Glucose Estimat Average Glucose 128 Hemoglobin A1c % 6.1 Calcium Magnesium Total Bilirubin AST ALT Alkaline Phosphatase Troponin I High Sens 43.3 H B-Natriuretic Peptide Total Protein Albumin Triglycerides Cholesterol LDL Cholesterol, Calc HDL Cholesterol Urine Color Urine Appearance Urine pH Ur Specific [place] Urine Protein Urine Glucose (UA) Urine Ketones Urine Blood Urine Nitrite Ur Leukocyte Esterase COVID-19 ([facility]) COVID-19 [employer] Com 11/04/21 11/04/21 11/04/21 05:58 05:58 05:58 WBC 8.9 RBC 4.02 L Hgb 11.9 L Hct 37.4 L MCV 93.0 MCH 29.6 MCHC 31.8 RDW 15.1 Plt Count 192 MPV 10.5 Immature Gran % (Auto) 0.1 Neut % (Auto) 55.1 Lymph % (Auto) 31.1 [place] % (Auto) 8.2 Eos % (Auto) 5.2 H Baso % (Auto) 0.3 Lymph # (Auto) 2.8 [place] # (Auto) 0.7 Eos # (Auto) 0.5 H Baso # (Auto) 0.0 Abs Immat Gran (auto) 0.01 Absolute Neuts (auto) 4.9 Absolute Nucleated RBC 0.000 Nucleated RBC % (auto) 0.0 PT INR APTT D-Dimer High Sensitivty Sodium 142 Potassium 4.2 Chloride 110 H Carbon Dioxide 26 Anion Gap 10 L BUN 23 H Creatinine 0.92 Estim Creat Clear Calc 51.1 Estimated GFR > 60 POC Glucose Random Glucose 101 Estimat Average Glucose Hemoglobin A1c % Calcium 9.3 D Magnesium Total Bilirubin AST ALT Alkaline Phosphatase Troponin I High Sens B-Natriuretic Peptide Total Protein Albumin Triglycerides Cancelled 87 Cholesterol Cancelled 121 LDL Cholesterol, Calc Cancelled 68 HDL Cholesterol Cancelled 36 Urine Color Urine Appearance Urine pH Ur Specific [place] Urine Protein Urine Glucose (UA) Urine Ketones Urine Blood Urine Nitrite Ur Leukocyte Esterase COVID-19 ([facility]) COVID-19 [employer] Com 11/04/21 08:56 WBC RBC Hgb Hct MCV MCH MCHC RDW Plt Count MPV Immature Gran % (Auto) Neut % (Auto) Lymph % (Auto) [place] % (Auto) Eos % (Auto) Baso % (Auto) Lymph # (Auto) [place] # (Auto) Eos # (Auto) Baso # (Auto) Abs Immat Gran (auto) Absolute Neuts (auto) Absolute Nucleated RBC Nucleated RBC % (auto) PT INR APTT D-Dimer High Sensitivty Sodium Potassium Chloride Carbon Dioxide Anion Gap BUN Creatinine Estim Creat Clear Calc Estimated GFR POC Glucose 90 Random Glucose Estimat Average Glucose Hemoglobin A1c % Calcium Magnesium Total Bilirubin AST ALT Alkaline Phosphatase Troponin I High Sens B-Natriuretic Peptide Total Protein Albumin Triglycerides Cholesterol LDL Cholesterol, Calc HDL Cholesterol Urine Color Urine Appearance Urine pH Ur Specific [place] Urine Protein Urine Glucose (UA) Urine Ketones Urine Blood Urine Nitrite Ur Leukocyte Esterase COVID-19 ([facility]) COVID-19 Clin Com ECG Interpretation: In the initial EKG from yesterday, underlying rhythm was sinus at 73/Min. There is very slight ST elevation in the inferior leads as well as somewhat diffusely in the anterior to but that could be a nonspecific finding. In the repeat EKG, ST segment seem to be unremarkable. Cannot exclude old inferior infarct. Overall, even a prior EKG from 2003 shows inferior wall changes. Imaging Radiologist's impression: Impressions Head CT 11/03/21 16:20 IMPRESSION: Generalized atrophy and nonspecific periventricular white matter disease. 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 No prior exams are available for comparison and this is age indeterminate. This critical result was discussed with Dr Pascal at 4:30 PM on 11/03/2021. It was ascertained that the content and urgency of the report was understood at the time of direct communication. Assessment and Plan (1) NSTEMI (non-ST elevated myocardial infarction): Status: Acute Plan Symptoms are probably from an NSTEMI. EKG itself shows no clear ischemic findings. High sensitivity troponins went up from 10.9 ---->43.3. Difficult to get any information from patient at this time. We can empirically treat him for NSTEMI with Lovenox, aspirin, beta-blockers and statins. He does not seem to be a good candidate for cardiac catheterization. Will need need to see how the mental status turns out to be. Echocardiogram to be completed. Will follow-up. Procedures Date of Service Date of Service: 11/04/21
[2021-11-04 10:43] VITALS: BP 140/73; PULSE 75; RESP 17; O2SAT 97
[2021-11-04] MEDS: Aspirin 81 MG TAB.CHEW PO (10:45)
[2021-11-04] MEDS: Metoprolol Tartrate 12.5 MG HALFTAB PO (10:45)
--- NOTE | 2021-11-04 11:28 | P.PNIM_ITS ---
Subjective Subjective Date of Service: 11/04/21 Interval History: f/u on NSTEMI, confused, agiatated but now calm with son-i-law at bedside Review of Systems Unable to obtain Physical Exam Vital Signs: Vital Signs: Last Vital Signs Temp 98.1 F 11/04/21 03:30 Pulse 75 11/04/21 10:43 Resp 17 11/04/21 10:43 BP 140/73 H 11/04/21 10:43 Pulse Ox 97 11/04/21 10:43 BMI result Body Mass Index 19.9 Const: Other: General: AO X , no acute distress Resp: CTA bilateral CVS: S1,S2,RRR GI: +BS, NT, no distention Skin: No rash Neuro: motor grossly intact Psych: appropriate affect Objective Data Active Medications Acetaminophen (Acetaminophen 325 Mg Tablet) 650 mg PO Q6H PRN PRN Reason: Pain, Mild (Pain Scale 1-3) Aspirin (Aspirin 81 Mg Tab.Chew) 81 mg PO DAILY [facility] Last Admin: 11/04/21 10:45 Dose: 81 mg Documented by: KERON Atorvastatin Calcium (Atorvastatin Calcium 80 Mg Tablet) 80 mg PO BEDTIME [facility] Dextrose (Dextrose 50 % 25 Gm/50 Ml Vial) 25 gm IVPUSH Q15M PRN; Protocol PRN Reason: per Hypoglycemia Standing Ord. Enoxaparin Sodium (Enoxaparin Sodium 100 Mg/Ml Syringe) 60 mg SUBCUT Q12H [facility] Last Admin: 11/03/21 23:04 Dose: 60 mg Documented by: ZEUS Glucose (Glucose Gel 15 Gm Gel..Gram.) 15 gm PO Q15M PRN; Protocol PRN Reason: per Hypoglycemia Standing Ord. Insulin Human Lispro (Insulin Lispro 100 Unit/Ml 3 Ml Vial) 0 unit SUBCUT QIDACHS [facility]; Protocol Last Admin: 11/04/21 09:10 Dose: Not Given Documented by: KERON Non-Admin Reason: No Insulin Coverage Melatonin (Melatonin 3 Mg Tablet) 6 mg PO BEDTIME PRN PRN Reason: Insomnia Metoprolol Tartrate (Metoprolol Tartrate 12.5 Mg Halftab) 12.5 mg PO BID [facility]; Protocol Last Admin: 11/04/21 10:45 Dose: 12.5 mg Documented by: KERON Nitroglycerin (Nitroglycerin 0.4 Mg Tab.Subl) 0.4 mg SUBLINGUAL Q5MX3 PRN PRN Reason: Chest pain Senna (Sennosides 8.6 Mg Tablet) 17.2 mg PO BEDTIME PRN PRN Reason: Constipation Sodium Chloride (0.9 % Sodium Chloride Flush 3 Ml Syringe) 3 ml IVFLUSH QSHIFT [facility] Last Admin: 11/04/21 10:44 Dose: Not Given Documented by: KERON Non-Admin Reason: No Access Labs CBC & Chem 7: 11/04/21 05:58 11/04/21 05:58 Labs: Laboratory Results - last 24 hr 11/03/21 11/03/21 11/03/21 16:04 17:01 17:01 MCV 94.4 MCH 29.9 MCHC 31.6 RDW 15.1 Plt Count 206 MPV 10.6 Immature Gran % (Auto) 0.3 Neut % (Auto) 77.1 H Lymph % (Auto) 12.4 L [place] % (Auto) 6.7 Eos % (Auto) 3.1 Baso % (Auto) 0.4 Lymph # (Auto) 1.1 L [place] # (Auto) 0.6 Eos # (Auto) 0.3 Baso # (Auto) 0.0 Abs Immat Gran (auto) 0.03 Absolute Neuts (auto) 7.0 Absolute Nucleated RBC 0.000 Nucleated RBC % (auto) 0.0 PT INR APTT D-Dimer High Sensitivty Anion Gap 14 Estim Creat Clear Calc 43.1 Estimated GFR > 60 POC Glucose 161 H Random Glucose 147 H Estimat Average Glucose Hemoglobin A1c % Calcium 10.0 Magnesium 2.1 Total Bilirubin 0.8 AST 23 ALT 19 Alkaline Phosphatase 83 B-Natriuretic Peptide Total Protein 7.9 Albumin 3.9 Triglycerides Cholesterol LDL Cholesterol, Calc HDL Cholesterol Urine Color Urine Appearance Urine pH Ur Specific [place] Urine Protein Urine Glucose (UA) Urine Ketones Urine Blood Urine Nitrite Ur Leukocyte Esterase COVID-19 ([facility]) COVID-19 Clin Com 11/03/21 11/03/21 11/03/21 17:01 17:01 18:08 MCV MCH MCHC RDW Plt Count MPV Immature Gran % (Auto) Neut % (Auto) Lymph % (Auto) [place] % (Auto) Eos % (Auto) Baso % (Auto) Lymph # (Auto) [place] # (Auto) Eos # (Auto) Baso # (Auto) Abs Immat Gran (auto) Absolute Neuts (auto) Absolute Nucleated RBC Nucleated RBC % (auto) PT INR APTT D-Dimer High Sensitivty Anion Gap Estim Creat Clear Calc Estimated GFR POC Glucose Random Glucose Estimat Average Glucose Hemoglobin A1c % Calcium Magnesium Total Bilirubin AST ALT Alkaline Phosphatase B-Natriuretic Peptide 53 Total Protein Albumin Triglycerides Cholesterol LDL Cholesterol, Calc HDL Cholesterol Urine Color YELLOW Urine Appearance CLEAR Urine pH 6.5 Ur Specific [place] 1.020 Urine Protein TRACE Urine Glucose (UA) NEG Urine Ketones NEG Urine Blood NEG Urine Nitrite NEG Ur Leukocyte Esterase NEG COVID-19 ([facility]) Negative COVID-19 Clin Com See Note 11/03/21 11/03/21 11/03/21 22:16 22:16 22:16 MCV 94.6 MCH 29.8 MCHC 31.5 RDW 15.0 Plt Count 158 L MPV 10.9 Immature Gran % (Auto) Neut % (Auto) Lymph % (Auto) [place] % (Auto) Eos % (Auto) Baso % (Auto) Lymph # (Auto) [place] # (Auto) Eos # (Auto) Baso # (Auto) Abs Immat Gran (auto) Absolute Neuts (auto) Absolute Nucleated RBC 0.000 Nucleated RBC % (auto) 0.0 PT 11.8 INR 1.0 APTT 25.4 D-Dimer High Sensitivty 186 Anion Gap Estim Creat Clear Calc Estimated GFR POC Glucose Random Glucose Estimat Average Glucose Hemoglobin A1c % Calcium Magnesium Total Bilirubin AST ALT Alkaline Phosphatase B-Natriuretic Peptide Total Protein Albumin Triglycerides Cholesterol LDL Cholesterol, Calc HDL Cholesterol Urine Color Urine Appearance Urine pH Ur Specific [place] Urine Protein Urine Glucose (UA) Urine Ketones Urine Blood Urine Nitrite Ur Leukocyte Esterase COVID-19 ([facility]) COVID-19 Clin Com 11/03/21 11/04/21 11/04/21 22:16 05:58 05:58 MCV 93.0 MCH 29.6 MCHC 31.8 RDW 15.1 Plt Count 192 MPV 10.5 Immature Gran % (Auto) 0.1 Neut % (Auto) 55.1 Lymph % (Auto) 31.1 [place] % (Auto) 8.2 Eos % (Auto) 5.2 H Baso % (Auto) 0.3 Lymph # (Auto) 2.8 [place] # (Auto) 0.7 Eos # (Auto) 0.5 H Baso # (Auto) 0.0 Abs Immat Gran (auto) 0.01 Absolute Neuts (auto) 4.9 Absolute Nucleated RBC 0.000 Nucleated RBC % (auto) 0.0 PT INR APTT D-Dimer High Sensitivty Anion Gap Estim Creat Clear Calc Estimated GFR POC Glucose Random Glucose Estimat Average Glucose 128 Hemoglobin A1c % 6.1 Calcium Magnesium Total Bilirubin AST ALT Alkaline Phosphatase B-Natriuretic Peptide Total Protein Albumin Triglycerides Cancelled Cholesterol Cancelled LDL Cholesterol, Calc Cancelled HDL Cholesterol Cancelled Urine Color Urine Appearance Urine pH Ur Specific [place] Urine Protein Urine Glucose (UA) Urine Ketones Urine Blood Urine Nitrite Ur Leukocyte Esterase COVID-19 ([facility]) COVID-19 Clin Com 11/04/21 11/04/21 05:58 08:56 MCV MCH MCHC RDW Plt Count MPV Immature Gran % (Auto) Neut % (Auto) Lymph % (Auto) [place] % (Auto) Eos % (Auto) Baso % (Auto) Lymph # (Auto) [place] # (Auto) Eos # (Auto) Baso # (Auto) Abs Immat Gran (auto) Absolute Neuts (auto) Absolute Nucleated RBC Nucleated RBC % (auto) PT INR APTT D-Dimer High Sensitivty Anion Gap 10 L Estim Creat Clear Calc 51.1 Estimated GFR > 60 POC Glucose 90 Random Glucose 101 Estimat Average Glucose Hemoglobin A1c % Calcium 9.3 D Magnesium Total Bilirubin AST ALT Alkaline Phosphatase B-Natriuretic Peptide Total Protein Albumin Triglycerides 87 Cholesterol 121 LDL Cholesterol, Calc 68 HDL Cholesterol 36 Urine Color Urine Appearance Urine pH Ur Specific [place] Urine Protein Urine Glucose (UA) Urine Ketones Urine Blood Urine Nitrite Ur Leukocyte Esterase COVID-19 ([facility]) COVID-19 Clin Com Assessment and Plan (1) NSTEMI (non-ST elevated myocardial infarction): Status: Acute (2) Diabetes: Status: Acute Plan 81-year-old male with a past medical history of hypertension, diabetes, history of TIA presented to the hospital today with a chief complaint of chest pain. Chest pain, elevated troponoin clinical presentation consistent with NSTEMI.. cardiology advises medical management with ASA, heparin, BB, statin, will get echo Lovenox for 48 hrs History of diabetes: Insulin sliding scale DVT prophylaxis: Patient on Lovenox Code status: Full code. Confirmed with the patient and patient's family at bedside as well. Quality Stroke Does the patient have a stroke diagnosis?: No VTE Prior VTE?: No VTE Risk Level:: Medical - moderate - high VTE Device Contraindication: Treatment Not Indicated VTE Drug Contraindication: N/A - Med Ordered
[2021-11-04 13:23] LABS: Glucose, Whole Blood 96 mg/dL (60-115)
[2021-11-04] MEDS: Enoxaparin Sodium 100 MG/ML SYRINGE 60 MG SUBCUT ×2 (14:04→21:49)
--- NOTE | 2021-11-04 17:37 | PC.NURSE ---
pt became aggressive again, removed tele monitor. pt stating he wants to walk home . Dr Herron informed and came to bedside. 1:[address] Pt watching television in bed. Sitter in place. will continue to monitor.
[2021-11-04] MEDS: 0.9 % Sodium Chloride Flush 3 ML SYRINGE IVFLUSH (17:52)
[2021-11-04 18:17] LABS: Glucose, Whole Blood 86 mg/dL (60-115)
[2021-11-04 20:58] VITALS: BP 113/61; PULSE 65; RESP 13; O2SAT 98
[2021-11-04 21:04] LABS: Glucose, Whole Blood 197 mg/dL (60-115)
[2021-11-04 21:33] LABS: INTERNATIONAL NORM RATIO 1.2 (0.9-1.1); Prothrombin Time 13.6 SEC (9.9-13.0)
[2021-11-04] MEDS: Insulin Lispro 100 UNIT/ML 3 ML VIAL SUBCUT (21:46)
[2021-11-04] MEDS: Atorvastatin Calcium 80 MG TABLET PO (21:46)
[2021-11-04] MEDS: Melatonin 3 MG TABLET 6 MG PO (21:46)
[2021-11-04 23:42] VITALS: BP 127/68; PULSE 69; RESP 14; TEMP 36.6; O2SAT 100
[2021-11-05] MEDS: 0.9 % Sodium Chloride Flush 3 ML SYRINGE IVFLUSH ×2 (01:35→07:47)
[2021-11-05 03:25] VITALS: BP 130/68; PULSE 68; RESP 16; TEMP 37.1; O2SAT 97
--- NOTE | 2021-11-05 05:01 | PC.NURSE ---
This rn took over patient's care at 0030, patient is alert, oriented to self only. Baseline confusion, patient has 1:1 sitter, ambulates to bathroom with 1 assist/supervision. Patient calm and cooperative, resting in bed, vss, callbell within reach.
[2021-11-05 07:57] LABS: Glucose, Whole Blood 86 mg/dL (60-115)
[2021-11-05 08:27] VITALS: BP 126/62; PULSE 68; RESP 16; TEMP 36.5; O2SAT 91
[2021-11-05] MEDS: Metoprolol Tartrate 12.5 MG HALFTAB PO (10:16)
[2021-11-05] MEDS: Aspirin 81 MG TAB.CHEW PO (10:16)
[2021-11-05] MEDS: Enoxaparin Sodium 100 MG/ML SYRINGE 60 MG SUBCUT (10:19)
--- NOTE | 2021-11-05 10:26 | P.DS_ITS ---
DS: Providers Provider Date of Service: 11/05/21 Date of admission: 11/03/21 22:08 Primary care physician: Jazmin Rosenbaum MD Consults: 11/03/21 22:06 Consult to Cardiology Routine Consulting Provider: Easton Quinones Reason for consultation: NSTEMI DS: Diagnosis Discharge Diagnosis (1) NSTEMI (non-ST elevated myocardial infarction): Status: Acute (2) Diabetes: Status: Acute DS: Summary Hospital Course Hospital Course: Chief Complaint: Chest pain 81-year-old male with a past medical history of hypertension, diabetes presented to the hospital with a chief complaint of chest pain.? Patient is provided with the patient, patient's family at bedside. Reportedly patient had chest pain started around 15:15, chest pain 80s pressure- like in nature, nonradiating, associated with nausea, diaphoresis; denies any lightheadedness or dizziness.? Symptoms lasted for about an hour.? Came to the ER for further evaluation. Denies any chest pain at the time of entry.? Denies any fever chills cough.? Denies any urinary symptoms. Review of all other systems is negative except mentioned above ER course: Per ER team patient initially complained of mild chest discomfort; EKGs x2 were negative; spoke to Cardiology Dr. Quinones suggested Lovenox.? Patient troponins were 10.9 followed by 39.4.? Patient was given aspirin 325 mg. Hospital course: He presented with chest pain and noted to have NSTEMI. He has medically treated with Lovenox, asprin, metoprolol and has been hemodynamically stable. Echo showed - Study limited by patient cooperation/mental status.?- The left ventricular systolic function is normal.? The visually estimated ejection fraction is between 60-65%.?- No obvious valvular pathology seen on this study.?Cardiology advises medical management. Of note he had episodes of agitated during hospital stay likely from situational change related delirium and seems to do well with family around and therefore is better going home the sooner. He will follow up with cardiology on outpatient basis. ? Time Spent with Patient Time attestation: Total time spent providing and/or coordinating discharge services: Discharge coordination time: Greater than 30 minutes Quality: Stroke Does the patient have a stroke diagnosis?: No Physical Exam Vital Signs: Vital Signs: Last Vital Signs Temp 97.7 F 11/05/21 08:27 Pulse 68 11/05/21 08:27 Resp 16 11/05/21 08:27 BP 126/62 11/05/21 08:27 Pulse Ox 91 L 11/05/21 08:27 BMI result Body Mass Index 19.9 DS: Data Data Completed and Pending Labs on day of discharge: Laboratory Results - last 24 hr 11/04/21 11/04/21 11/04/21 13:19 18:14 20:56 PT 13.6 H INR 1.2 H POC Glucose 96 86 11/04/21 11/05/21 20:57 07:45 PT INR POC Glucose 197 H 86 Discharge Plan Discharge Anticipated Discharge Date/Time: 11/05/21 10:49 Patient Disposition: Home, Self-Care Discharge Diagnosis: NSTEMI Referrals: Jazmin Rosenbaum MD [Primary Care Provider] - 2 days Heydi Coronado MD [Physician] - 2 days Discharge Medications: New metoprolol tartrate 25 mg tablet 12.5 mg PO BID Qty: 60 0RF aspirin 81 mg Tablet,Chewable 81 mg PO DAILY Qty: 30 0RF Continued atorvastatin [Lipitor] 40 mg Tablet 40 mg PO BEDTIME 0RF enalapril maleate 5 mg Tablet 5 mg PO DAILY 0RF donepezil [Aricept] 10 mg Tablet 10 mg PO BEDTIME 0RF metformin 850 mg Tablet 850 mg PO BID@0900,1700 0RF cyanocobalamin (vitamin B-12) 1,000 mcg Tablet 1,000 mcg PO DAILY 0RF famotidine [Pepcid] 20 mg Tablet 20 mg PO BID 0RF memantine 5 mg Tablet 5 mg PO BID 0RF Diet: advance to usual diet and diabetic diet Activity on Discharge: As tolerated Stand Alone Forms: Patient Portal Discharge page, Work/School Release Care Plan Goals: Full reocvery from heart attack Health Concerns: Heart attack Plan of Treatment: Take aspirin, Metoprolol, Lipitor and follow up with your docotor in a week, the heart doctor office will arange a follow up with you Assessment: As above Patient Instructions: Weakness (ED)
--- NOTE | 2021-11-05 11:34 | P.PNCA_ITS ---
Subjective Subjective Date of Service: 11/05/21 Interval history: He seems much more alert today. States that he feels fine without any chest pain other cardiac symptoms. Review of Systems Review of Systems Yes all other systems are reviewed and are negative Cardiovascular: Reports as per HPI, Reports no additional cardiovascular complaints, Denies acrocyanosis, Denies cool extremities, Denies chest pain, Denies diaphoresis, Denies syncope, Denies claudication, Denies leg edema, Denies lightheadedness, Denies palpitations and Denies dyspnea Respiratory: Denies dyspnea Denies syncope Endocrine: Denies palpitations Physical Exam Vital Signs: Last Vital Signs Temp 97.7 F 11/05/21 08:27 Pulse 68 11/05/21 08:27 Resp 16 11/05/21 08:27 BP 126/62 11/05/21 08:27 Pulse Ox 91 L 11/05/21 08:27 BMI result Body Mass Index 19.9 Const General: comfortable HENMT Other: Unremarkable Neck Neck: Yes normal visual inspection Chest Chest palpation & inspection: normal inspection of the chest Resp Auscultation: clear to auscultation bilaterally Cardio Palpation: normal PMI Heart sounds: S1 normal heart sound present, S2 normal heart sound present, no gallops, no murmurs and no rubs GI Palpation (GI): Soft to palpation Back/Spine/Pelvis Other: unremarkable Skin Lesions: other Neuro General: other Extrem General: Yes other Psych Mental Status: other Objective Labs and Meds Result diagrams: 11/04/21 05:58 11/04/21 05:58 Lab results: Laboratory Results - last 24 hr 11/04/21 11/04/21 11/04/21 13:19 18:14 20:56 PT 13.6 H INR 1.2 H POC Glucose 96 86 11/04/21 11/05/21 20:57 07:45 PT INR POC Glucose 197 H 86 Progress Note: A&P Assessment and plan (1) NSTEMI (non-ST elevated myocardial infarction): Status: Acute Plan EKG itself shows no clear ischemic findings. High sensitivity troponins went up from 10.9 ---->43.3. Echocardiogram with preserved LVEF. Due to patient cooperation somewhat limited quality. Overall, possible small NSTEMI. At his age and with dementia, not a good candidate for aggressive care. Can medically treat for stable CAD with aspirin, statins. Follow-up can be arranged. Fall Risk Details Current Medications: Current Medications Acetaminophen (Acetaminophen 325 Mg Tablet) 650 mg PO Q6H PRN PRN Reason: Pain, Mild (Pain Scale 1-3) Aspirin (Aspirin 81 Mg Tab.Chew) 81 mg PO DAILY [facility] Last Admin: 11/05/21 10:16 Dose: 81 mg Documented by: Atorvastatin Calcium (Atorvastatin Calcium 80 Mg Tablet) 80 mg PO BEDTIME [facility] Last Admin: 11/04/21 21:46 Dose: 80 mg Documented by: Dextrose (Dextrose 50 % 25 Gm/50 Ml Vial) 25 gm IVPUSH Q15M PRN; Protocol PRN Reason: per Hypoglycemia Standing Ord. Enoxaparin Sodium (Enoxaparin Sodium 100 Mg/Ml Syringe) 60 mg SUBCUT Q12H [facility] Last Admin: 11/05/21 10:19 Dose: 60 mg Documented by: Glucose (Glucose Gel 15 Gm Gel..Gram.) 15 gm PO Q15M PRN; Protocol PRN Reason: per Hypoglycemia Standing Ord. Insulin Human Lispro (Insulin Lispro 100 Unit/Ml 3 Ml Vial) 0 unit SUBCUT QIDACHS [facility]; Protocol Last Admin: 11/05/21 07:47 Dose: Not Given Documented by: Melatonin (Melatonin 3 Mg Tablet) 6 mg PO BEDTIME PRN PRN Reason: Insomnia Last Admin: 11/04/21 21:46 Dose: 6 mg Documented by: Metoprolol Tartrate (Metoprolol Tartrate 12.5 Mg Halftab) 12.5 mg PO BID [facility]; Protocol Last Admin: 11/05/21 10:16 Dose: 12.5 mg Documented by: Nitroglycerin (Nitroglycerin 0.4 Mg Tab.Subl) 0.4 mg SUBLINGUAL Q5MX3 PRN PRN Reason: Chest pain Senna (Sennosides 8.6 Mg Tablet) 17.2 mg PO BEDTIME PRN PRN Reason: Constipation Sodium Chloride (0.9 % Sodium Chloride Flush 3 Ml Syringe) 3 ml IVFLUSH QSHIFT [facility] Last Admin: 11/05/21 07:47 Dose: 3 ml Documented by: Time Spent With Patient Time: Total time spent is greater than 50% in coordination of care (as documented) at patient's floor/unit and/or counseling patient: Time with patient: less than 15 minutes Progress Note: Quality Stroke Does the patient have a stroke diagnosis?: No Procedures Date of Service Date of Service: 11/05/21
--- NOTE | 2021-11-05 11:57 | PC.NURSE ---
ate breakfast, nad, pleasantly confused, steady gait to bathroom, now visiting with family
[2021-11-05 12:16] VITALS: BP 123/62; PULSE 67; RESP 16; TEMP 37.3; O2SAT 98
[2021-11-05 12:27] LABS: Glucose, Whole Blood 102 mg/dL (60-115)
--- NOTE | 2021-11-05 13:53 | MHC.CM.PN ---
Per ROUNDS discussion, Patient will be medically cleared for dc to home today, self care.Last IMM addressed on 11/03/21.
== END 2021-11-05 16:10 | disposition home or self-care (01) | DRG 282 ==
LOC: HO.ED 21:59 → HO.EDOVER 22:19
PROVIDERS: Physician Assistant; Admitting Provider Hospitalist; Emergency Provider Emergency Medicine; PCP General Practice; Visit Provider Internal Medicine
DX: I21.4 Non-ST elevation (NSTEMI) myocardial infarction (principal); I10 Essential (primary) hypertension; F03.90 Unspecified dementia, unspecified severity, without behavioral disturbance, psychotic disturbance, mood disturbance, and anxiety; Z20.822 Contact with and (suspected) exposure to COVID-19; Z86.73 Personal history of transient ischemic attack (TIA), and cerebral infarction without residual deficits; Z79.82 Long term (current) use of aspirin; Z79.84 Long term (current) use of oral hypoglycemic drugs; Z79.899 Other long term (current) drug therapy
CPT/HCPCS: 36415; 70450; 80048; 80053; 80061; 81003; 82947; 83036; 83735; 83880; 84484; 85025; 85027; 85379; 85610; 85730; 87635; 93005; 93306; 99285; J1650

== ENCOUNTER 2022-09-27 17:09 | Emergency (ER) | payer MEDICARE, MEDICAID, SELFPAY ==
--- NOTE | ~2022-09-27 | CT_ITS ---
Indication: Fall, trauma EXAMINATION: CT brain, CT cervical spine. This CT examination was performed using dose optimization techniques as appropriate, variously including the following: *Automated exposure control *Adjustment of mA and/or kV according to patient size (this includes techniques or standardized protocols for targeted exams where dose is matched to indication/reason for exam; i.e. extremities or head) *Use of iterative reconstruction technique Radiation dose is [address] brain; Comparison previous dated 11/03/2021. There is no midline shift. There is no mass effect. There is no hemorrhage. The basal cisterns appear patent. The posterior fossa is grossly within normal limits. No extra-axial collection Note is made of atrophy and extensive white matter ischemic changes. 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 No fracture is seen on the bone windows. CT cervical spine; Negative for acute fracture or dislocation. Degenerative changes are noted. Degeneration at the disc level at C4-C5 may be compromising the descending cord. CT/CT cervical spine wo IV con IMPRESSION: Negative acute noncontrast CT the brain. Extensive white matter ischemic change and atrophy. No acute fracture or dislocation in the cervical spine. Degenerative changes
--- NOTE | ~2022-09-27 | CT_ITS ---
Indication: Fall, trauma EXAMINATION: CT brain, CT cervical spine. This CT examination was performed using dose optimization techniques as appropriate, variously including the following: *Automated exposure control *Adjustment of mA and/or kV according to patient size (this includes techniques or standardized protocols for targeted exams where dose is matched to indication/reason for exam; i.e. extremities or head) *Use of iterative reconstruction technique Radiation dose is [address] brain; Comparison previous dated 11/03/2021. There is no midline shift. There is no mass effect. There is no hemorrhage. The basal cisterns appear patent. The posterior fossa is grossly within normal limits. No extra-axial collection Note is made of atrophy and extensive white matter ischemic changes. 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 No fracture is seen on the bone windows. CT cervical spine; Negative for acute fracture or dislocation. Degenerative changes are noted. Degeneration at the disc level at C4-C5 may be compromising the descending cord. CT/CT head/brain wo IV con IMPRESSION: Negative acute noncontrast CT the brain. Extensive white matter ischemic change and atrophy. No acute fracture or dislocation in the cervical spine. Degenerative changes
--- NOTE | ~2022-09-27 | CT_ITS ---
Indication: Fall, dementia EXAMINATION: CT chest, CT abdomen pelvis. Axial imaging with coronal and sagittal reformatted images. Radiation dose 1278. CT chest ultrasound would be recommended. The axillary regions are unremarkable. Coronary calcifications are seen. 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 No bulky central mediastinal adenopathy. Imaging the lung strauss. Right lung; No significant infiltrate or effusion. Small 3 mm groundglass nodule on image 30. Left lung; No significant infiltrate or effusion. Small 3 mm nodule on image 28 4 mm groundglass nodule on image 37 Upper abdomen; Calcifications within the liver. Low-density lesion along the superior aspect diaphragmatic region in the right lobe. This may represent a cystic area. Low Hounsfield units. The spleen shows calcification. Status post cholecystectomy. Region the pancreas is unremarkable. Adrenal glands within normal limits. Cystic change within the kidneys. High density lesion which is small medially on the left may represent hyperdense cyst on image 36. Consider ultrasound to fully evaluate. There is no hydronephrosis. No free fluid in the deep pelvis. Prominent prostate. Mildly thick-walled bladder. The bowel pattern is felt to be nonobstructing. Probable hiatal hernia. Prominent fluid in the stomach. Review of the bone windows demonstrating superior compression injury at L2. Age is indeterminate. CT/CT abdomen pelvis wo IV con IMPRESSION: In the chest a few scattered areas of nodularity. Consider low-dose noncontrast follow-up in 9 months to a year. No acute finding here. Mild superior compression at L2. Age is indeterminate. Otherwise no acute finding in the abdomen pelvis. No free fluid. Exam is limited from artifact. Other findings are as described above. Mildly thick-walled bladder could be hypertrophy. Cystitis cannot be excluded. Low-density lesion superior liver adjacent to the diaphragm. Consider ultrasound to fully assess as well as renal findings described.
--- NOTE | 2022-09-27 17:17 | ED_ITS ---
HPI - Animal Bite General Chief Complaint: Back Pain/Injury <DAVIDA Kim - Last Filed: 09/27/22 17:23> Stated Complaint: fell/ hurt lower back <DAVIDA Kim - Last Filed: 09/27/22 17:23> Time Seen by Provider: 09/27/22 20:23 <DAVIDA Kim - Last Filed: 09/27/22 17:23> Source: patient <Shirley Foster NP - Last Filed: 09/28/22 01:28> Mode of arrival: ambulatory <Shirley Foster NP - Last Filed: 09/28/22 01:28> Limitations: no limitations <Shirley Foster NP - Last Filed: 09/28/22 01:28> History of Present Illness HPI narrative: 82-year-old male presents for an unwitnessed fall that occurred yesterday. Patient was found on the ground in the bathroom, has dementia per baseline and is a poor historian. Family notes a lump on his back but otherwise patient is at his baseline behavior. <Shirley Foster NP - Last Filed: 09/28/22 01:28> Onset (ago): day(s) (1) <Shirley Foster NP - Last Filed: 09/28/22 01:28> Related Data Home Medications: Home Medications Medication Instructions Recorded Confirmed atorvastatin 40 mg tablet (Lipitor) 40 mg PO BEDTIME 11/03/21 11/03/21 cyanocobalamin (vitamin B-12) 1,000 mcg PO DAILY 11/03/21 11/03/21 1,000 mcg tablet donepezil 10 mg tablet (Aricept) 10 mg PO BEDTIME 11/03/21 11/03/21 enalapril maleate 5 mg tablet 5 mg PO DAILY 11/03/21 11/03/21 famotidine 20 mg tablet (Pepcid) 20 mg PO BID 11/03/21 11/03/21 memantine 5 mg tablet 5 mg PO BID 11/03/21 11/03/21 metformin 850 mg tablet 850 mg PO BID@0900,1700 11/03/21 11/03/21 Previous Rx's Medication Instructions Recorded aspirin 81 mg chewable tablet 81 mg PO DAILY #30 tabs 11/05/21 metoprolol tartrate 25 mg tablet 12.5 mg PO BID #60 tabs 11/05/21 <DAVIDA Kim - Last Filed: 09/27/22 17:23> Allergies/Adverse Reactions: Allergies Allergy/AdvReac Type Severity Reaction Status Date / Time No Known Allergies Allergy Verified 09/27/22 17:19 <DAVIDA Kim - Last Filed: 09/27/22 17:23> Review of Systems Review of Systems: Constitutional: No Fever, No Chills Cardiovascular: No Chest Pain, No SOB Respiratory: No Cough, No Dyspnea Gastrointestinal: No Nausea, No Vomiting, No Diarrhea, No abdominal Pain Genitourinary: No Dysuria, No Hematuria Musculoskeletal: positive Mid back pain, No Myalgias, No Joint Swelling Skin: No Skin lacerations, No rash Neuro: No Weakness, No Numbness, No Paresthesias, No Loss of Consciousness, No Dizziness, No Headache <Shirley Foster NP - Last Filed: 09/28/22 01:28> Yes all other systems are reviewed and are negative <Shirley Foster NP - Last Filed: 09/28/22 01:28> [facility] Past Medical History Attestation statement: The following information was validated with the patient. <Shirley Foster NP - Last Filed: 09/28/22 01:28> Source: old records reviewed <Shirley Foster NP - Last Filed: 09/28/22 01:28> Medical History: Medical History Dementia Diabetes HTN (hypertension) Weakness <DAVIDA Kim - Last Filed: 09/27/22 17:23> Social History Social History: Social History Alcohol intake: former Patient Tobacco Use Status: Tobacco use Unknown Smoked in Last 30 Days: No Use of substances other than those prescribed or required for medical reasons: No Advance Directives: Yes Advance Directives on File: Yes Advance Directives Date on File: 11/04/21 service: No Current occupational status: retired <DAVIDA Kim - Last Filed: 09/27/22 17:23> Physical Exam ED Vital Signs: Vital Signs - 24 hr 09/27/22 17:19 09/27/22 20:19 Temperature 97.4 F 97.9 F Pulse Rate 115 H 109 H Respiratory Rate 16 16 Blood Pressure 123/90 H 159/91 H Pulse Oximetry 96 97 Oxygen Delivery Method Room Air Room Air BMI result Body Mass Index 21.0 <DAVIDA Kim - Last Filed: 09/27/22 17:23> Vital Signs - 24 hr 09/27/22 17:19 09/27/22 20:19 Temperature 97.4 F 97.9 F Pulse Rate 115 H 109 H Respiratory Rate 16 16 Blood Pressure 123/90 H 159/91 H Pulse Oximetry 96 97 Oxygen Delivery Method Room Air Room Air BMI result Body Mass Index 21.0 <Shirley Foster NP - Last Filed: 09/28/22 01:28> Appearance: Alert. Oriented X3. No acute distress. Eyes: Pupils equal, round and reactive to light. ENT: Pharynx normal. Neck: Normal inspection. Neck supple. CVS: Normal heart rate and rhythm. Pulses normal. Respiratory: No respiratory distress. Breath sounds normal. Abdomen: Soft and nontender. Skin: Hematoma noted to lower midback. Skin warm and dry. Normal skin color. Normal skin turgor. Extremities: No lower extremity edema. gait well-balanced well coordinated. Neuro: No motor deficit. No sensory deficit. Cranial nerves 2-12 intact. <Shirley Foster NP - Last Filed: 09/28/22 01:28> Course Course Course Narrative: RME--82yo M w/PMHx dementia, DM, HTN, on ASA c/o low back pain s/p unwitnessed fall on Wednesday in bathroom. Unknown head trauma or LOC. Son in law and daughter who live upstairs picked patient up off the floor after pts heard the fall. Swelling noted to low back, abd soft & nontender. Ambulating w/slow steady gait (baseline) EKG, Labs, UA, CT head/C-spine, chest, abdomen/pelvis ordered <DAVIDA Kim - Last Filed: 09/27/22 17:23> RME--82yo M w/PMHx dementia, DM, HTN, on ASA c/o low back pain s/p unwitnessed fall on Wednesday in bathroom. Unknown head trauma or LOC. Son in law and daughter who live upstairs picked patient up off the floor after pts heard the fall. Swelling noted to low back, abd soft & nontender. Ambulating w/slow steady gait (baseline) EKG, Labs, UA, CT head/C-spine, chest, abdomen/pelvis ordered 82-year-old male presents for injury sustained from a fall that occurred yesterday. Note selected indicates animal bite however this is incorrect. I cannot delete this note because it will delete prior providers assessment. Patient has dementia per baseline, is able to make his immediate needs known. He lives with his and son, [id number]. They all care for him and assist with his activities of daily living. Patient is ambulatory, does his best to answer questions however does answer inappropriately. He is able to follow simple commands. Patient was shah scanned while in the emergency department waiting room, labs negative for acute findings, does indicate a BUN of 23 which is consistent with his prior values. 21:30 CT scan indicates old compression injury to L2, family does state that this patient fell while he was in [place] and this is a consistent finding with his prior medical history. Incidental findings were discussed with the family, family feels comfortable taking the patient home and will follow-up with his primary care physician. Family verbalized understanding of and agrees to plan of care. Verbalized understanding of signs and symptoms indicating need for major intervention. Patient's son does speak [place], welt maker utilized so patient's could understand what was being discussed. <Shirley Foster NP - Last Filed: 09/28/22 01:28> Medical Decision Making Differential Diagnosis Differential Diagnoses: The differential diagnosis associated with the presentation includes <Shirley Foster NP - Last Filed: 09/28/22 01:28> Fracture, dislocation, subdural, CVA <Shirley Foster NP - Last Filed: 09/28/22 01:28> Lab Data MDM Lab Attestation statement: I reviewed the patient's lab results. <Shirley Foster NP - Last Filed: 09/28/22 01:28> Result Diagrams: 09/27/22 18:14 09/27/22 18:14 <DAVIDA Kim - Last Filed: 09/27/22 17:23> Labs: Lab Results 09/27/22 09/27/22 09/27/22 Range/Units 18:14 18:14 18:14 WBC 11.7 H (4.8-10.8) X10*3/uL RBC 5.16 D (4.60-5.80) X10*6/uL Hgb 15.5 D (14.0-18.0) g/dl Hct 47.6 D (42.0-52.0) % MCV 92.2 (80.0-98.0) fL MCH 30.0 (27.0-33.0) pg MCHC 32.6 (31.0-36.0) g/dl RDW 14.1 (11.0-16.0) % Plt Count 236 (160-400) X10*3/uL MPV 10.3 (9.4-12.4) fL Immature Gran % (Auto) 0.8 H (0.0-0.4) % Neut % (Auto) 66.9 (45-73) % Lymph % (Auto) 17.0 L (20-40) % [place] % (Auto) 8.3 (2-11) % Eos % (Auto) 6.6 H (0-4) % Baso % (Auto) 0.4 (0-2) % Lymph # (Auto) 2.0 (1.2-4.9) X10*3/uL [place] # (Auto) 1.0 (0.1-1.2) X10*3/uL Eos # (Auto) 0.8 H (0.0-0.4) X10*3/uL Baso # (Auto) 0.1 (0.0-0.2) X10*3/uL Abs Immat Gran (auto) 0.09 H (0.00-0.03) X10*3/uL Absolute Neuts (auto) 7.8 (2.0-8.3) x10*3/uL Absolute Nucleated RBC 0.000 (0.0-0.012) X10*3/uL Nucleated RBC % (auto) 0.0 (0.0-0.2) /100WBC PT 11.4 (10.0-13.1) SEC INR 1.0 (0.9-1.1) Sodium 140 (135-145) mmol/L Potassium 4.8 (3.3-5.1) mmol/L Chloride 103 (96-108) mmol/L Carbon Dioxide 27 (22-29) mmol/L Anion Gap 15 (12-20) BUN 23 H (9-16) mg/dL Creatinine 0.90 (0.5-1.4) mg/dL Estim Creat Clear Calc 50.1 Estimated GFR > 60 Random Glucose 135 H (60-115) mg/dL Calcium 10.4 H D (8.4-10.2) mg/dL Magnesium 1.8 (1.6-2.6) mg/dL Total Bilirubin 1.0 (0.0-1.0) mg/dL Direct Bilirubin 0.3 (0.0-0.5) mg/dL AST 44 H (5-37) U/L ALT 24 (0-40) U/L Alkaline Phosphatase 106 (39-117) U/L Troponin I High Sens (<3.5-35.0) ng/L Total Protein 8.0 (6.5-8.0) g/dL Albumin 4.2 (3.5-5.0) g/dL 09/27/22 Range/Units 18:14 WBC (4.8-10.8) X10*3/uL RBC (4.60-5.80) X10*6/uL Hgb (14.0-18.0) g/dl Hct (42.0-52.0) % MCV (80.0-98.0) fL MCH (27.0-33.0) pg MCHC (31.0-36.0) g/dl RDW (11.0-16.0) % Plt Count (160-400) X10*3/uL MPV (9.4-12.4) fL Immature Gran % (Auto) (0.0-0.4) % Neut % (Auto) (45-73) % Lymph % (Auto) (20-40) % [place] % (Auto) (2-11) % Eos % (Auto) (0-4) % Baso % (Auto) (0-2) % Lymph # (Auto) (1.2-4.9) X10*3/uL [place] # (Auto) (0.1-1.2) X10*3/uL Eos # (Auto) (0.0-0.4) X10*3/uL Baso # (Auto) (0.0-0.2) X10*3/uL Abs Immat Gran (auto) (0.00-0.03) X10*3/uL Absolute Neuts (auto) (2.0-8.3) x10*3/uL Absolute Nucleated RBC (0.0-0.012) X10*3/uL Nucleated RBC % (auto) (0.0-0.2) /100WBC PT (10.0-13.1) SEC INR (0.9-1.1) Sodium (135-145) mmol/L Potassium (3.3-5.1) mmol/L Chloride (96-108) mmol/L Carbon Dioxide (22-29) mmol/L Anion Gap (12-20) BUN (9-16) mg/dL Creatinine (0.5-1.4) mg/dL Estim Creat Clear Calc Estimated GFR Random Glucose (60-115) mg/dL Calcium (8.4-10.2) mg/dL Magnesium (1.6-2.6) mg/dL Total Bilirubin (0.0-1.0) mg/dL Direct Bilirubin (0.0-0.5) mg/dL AST (5-37) U/L ALT (0-40) U/L Alkaline Phosphatase (39-117) U/L Troponin I High Sens 4.4 (<3.5-35.0) ng/L Total Protein (6.5-8.0) g/dL Albumin (3.5-5.0) g/dL <DAVIDA Kim - Last Filed: 09/27/22 17:23> Lab Results 09/27/22 09/27/22 09/27/22 Range/Units 18:14 18:14 18:14 WBC 11.7 H (4.8-10.8) X10*3/uL RBC 5.16 D (4.60-5.80) X10*6/uL Hgb 15.5 D (14.0-18.0) g/dl Hct 47.6 D (42.0-52.0) % MCV 92.2 (80.0-98.0) fL MCH 30.0 (27.0-33.0) pg MCHC 32.6 (31.0-36.0) g/dl RDW 14.1 (11.0-16.0) % Plt Count 236 (160-400) X10*3/uL MPV 10.3 (9.4-12.4) fL Immature Gran % (Auto) 0.8 H (0.0-0.4) % Neut % (Auto) 66.9 (45-73) % Lymph % (Auto) 17.0 L (20-40) % [place] % (Auto) 8.3 (2-11) % Eos % (Auto) 6.6 H (0-4) % Baso % (Auto) 0.4 (0-2) % Lymph # (Auto) 2.0 (1.2-4.9) X10*3/uL [place] # (Auto) 1.0 (0.1-1.2) X10*3/uL Eos # (Auto) 0.8 H (0.0-0.4) X10*3/uL Baso # (Auto) 0.1 (0.0-0.2) X10*3/uL Abs Immat Gran (auto) 0.09 H (0.00-0.03) X10*3/uL Absolute Neuts (auto) 7.8 (2.0-8.3) x10*3/uL Absolute Nucleated RBC 0.000 (0.0-0.012) X10*3/uL Nucleated RBC % (auto) 0.0 (0.0-0.2) /100WBC PT 11.4 (10.0-13.1) SEC INR 1.0 (0.9-1.1) Sodium 140 (135-145) mmol/L Potassium 4.8 (3.3-5.1) mmol/L Chloride 103 (96-108) mmol/L Carbon Dioxide 27 (22-29) mmol/L Anion Gap 15 (12-20) BUN 23 H (9-16) mg/dL Creatinine 0.90 (0.5-1.4) mg/dL Estim Creat Clear Calc 50.1 Estimated GFR > 60 Random Glucose 135 H (60-115) mg/dL Calcium 10.4 H D (8.4-10.2) mg/dL Magnesium 1.8 (1.6-2.6) mg/dL Total Bilirubin 1.0 (0.0-1.0) mg/dL Direct Bilirubin 0.3 (0.0-0.5) mg/dL AST 44 H (5-37) U/L ALT 24 (0-40) U/L Alkaline Phosphatase 106 (39-117) U/L Troponin I High Sens (<3.5-35.0) ng/L Total Protein 8.0 (6.5-8.0) g/dL Albumin 4.2 (3.5-5.0) g/dL 09/27/22 Range/Units 18:14 WBC (4.8-10.8) X10*3/uL RBC (4.60-5.80) X10*6/uL Hgb (14.0-18.0) g/dl Hct (42.0-52.0) % MCV (80.0-98.0) fL MCH (27.0-33.0) pg MCHC (31.0-36.0) g/dl RDW (11.0-16.0) % Plt Count (160-400) X10*3/uL MPV (9.4-12.4) fL Immature Gran % (Auto) (0.0-0.4) % Neut % (Auto) (45-73) % Lymph % (Auto) (20-40) % [place] % (Auto) (2-11) % Eos % (Auto) (0-4) % Baso % (Auto) (0-2) % Lymph # (Auto) (1.2-4.9) X10*3/uL [place] # (Auto) (0.1-1.2) X10*3/uL Eos # (Auto) (0.0-0.4) X10*3/uL Baso # (Auto) (0.0-0.2) X10*3/uL Abs Immat Gran (auto) (0.00-0.03) X10*3/uL Absolute Neuts (auto) (2.0-8.3) x10*3/uL Absolute Nucleated RBC (0.0-0.012) X10*3/uL Nucleated RBC % (auto) (0.0-0.2) /100WBC PT (10.0-13.1) SEC INR (0.9-1.1) Sodium (135-145) mmol/L Potassium (3.3-5.1) mmol/L Chloride (96-108) mmol/L Carbon Dioxide (22-29) mmol/L Anion Gap (12-20) BUN (9-16) mg/dL Creatinine (0.5-1.4) mg/dL Estim Creat Clear Calc Estimated GFR Random Glucose (60-115) mg/dL Calcium (8.4-10.2) mg/dL Magnesium (1.6-2.6) mg/dL Total Bilirubin (0.0-1.0) mg/dL Direct Bilirubin (0.0-0.5) mg/dL AST (5-37) U/L ALT (0-40) U/L Alkaline Phosphatase (39-117) U/L Troponin I High Sens 4.4 (<3.5-35.0) ng/L Total Protein (6.5-8.0) g/dL Albumin (3.5-5.0) g/dL <Shirley Foster NP - Last Filed: 09/28/22 01:28> Independent Interpretation I performed an independent interpretation of an: EKG and CT Scan <Shirley Foster NP - Last Filed: 09/28/22 01:28> Interpretation: Sinus tachycardia with Premature supraventricular complexes 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 rate has increased BY 40 BPM Vent. rate 118 BPM WI interval 112 ms QRS duration 72 ms QT/QTc 296/414 ms P-R-T axes 22 -8 36 27-SEP-2022 18:07:59 <AG Milian Last Filed: 09/28/22 01:28> Radiology Impression Discussion of test interpretation with radiology: I have reviewed the radiologist's reading. <AG Milian Last Filed: 09/28/22 01:28> Radiologist Impression: EXAMINATION: CT brain, CT cervical spine. This CT examination was performed using dose optimization techniques as appropriate, variously including the following: *Automated exposure control *Adjustment of mA and/or kV according to patient size (this includes techniques or standardized protocols for targeted exams where dose is matched to indication/reason for exam; i.e. extremities or head) *Use of iterative reconstruction technique Radiation dose is [address] brain; Comparison previous dated 11/03/2021. There is no midline shift. There is no mass effect. There is no hemorrhage. The basal cisterns appear patent. The posterior fossa is grossly within normal limits. No extra-axial collection Note is made of atrophy and extensive white matter ischemic changes. 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 No fracture is seen on the bone windows. CT cervical spine; Negative for acute fracture or dislocation. Degenerative changes are noted. Degeneration at the disc level at C4-C5 may be compromising the descending cord. CT/CT head/brain wo IV con IMPRESSION: Negative acute noncontrast CT the brain. Extensive white matter ischemic change and atrophy. ? No acute fracture or dislocation in the cervical spine. Degenerative changes Indication: Fall, dementia EXAMINATION: CT chest, CT abdomen pelvis. Axial imaging with coronal and sagittal reformatted images. Radiation dose 1278. CT chest ultrasound would be recommended. The axillary regions are unremarkable. Coronary calcifications are seen. 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 No bulky central mediastinal adenopathy. Imaging the lung strauss. Right lung; No significant infiltrate or effusion. Small 3 mm groundglass nodule on image 30. Left lung; No significant infiltrate or effusion. Small 3 mm nodule on image 28 4 mm groundglass nodule on image 37 Upper abdomen; Calcifications within the liver. Low-density lesion along the superior aspect diaphragmatic region in the right lobe. This may represent a cystic area. Low Hounsfield units. The spleen shows calcification. Status post cholecystectomy. Region the pancreas is unremarkable. Adrenal glands within normal limits. Cystic change within the kidneys. High density lesion which is small medially on the left may represent hyperdense cyst on image 36. Consider ultrasound to fully evaluate. There is no hydronephrosis. No free fluid in the deep pelvis. Prominent prostate. Mildly thick-walled bladder. The bowel pattern is felt to be nonobstructing. Probable hiatal hernia. Prominent fluid in the stomach. Review of the bone windows demonstrating superior compression injury at L2. Age is indeterminate. CT/CT chest wo IV con IMPRESSION:? ? In the chest a few scattered areas of nodularity. Consider low-dose noncontrast follow-up in 9 months to a year. No acute finding here. ? Mild superior compression at L2. Age is indeterminate. Otherwise no acute finding in the abdomen pelvis. No free fluid. Exam is limited from artifact. ? Other findings are as described above. Mildly thick-walled bladder could be hypertrophy. Cystitis cannot be excluded. ? Low-density lesion superior liver adjacent to the diaphragm. Consider ultrasound to fully assess as well as renal findings described. ? <Shirley Foster NP - Last Filed: 09/28/22 01:28> Independent Historian Clinical information obtained from an independent historian. History obtained from or confirmed by: Spouse and Other ( children) <Shirley Foster NP - Last Filed: 09/28/22 01:28> External Record Review External record reviewed: Inpatient record, Outpatient record, Prior outpatient labs and Prior outpatient radiology <AG Milian Last Filed: 09/28/22 01:28> Chronic Conditions Patient?s care impacted by: Diabetes, Hypertension and Other ( dementia) <Shirley Foster NP - Last Filed: 09/28/22 01:28> Social Determinants Patient?s care significantly limited by Social Determinants of Health including: Other Social Determinant of Health <Shirley Foster NP - Last Filed: 09/28/22 01:28> Discharge Plan Discharge Clinical Impression: Fall, Compression fracture of L2, Cystitis <DAVIDA Kim - Last Filed: 09/27/22 17:23> Patient Disposition: Home, Self-Care <DAVIDA Kim - Last Filed: 09/27/22 17:23> Additional Instructions: usted fue evaluado por carolina lesi?n sufrida por carolina ca?da. La tomograf?a computarizada indica carolina fractura por compresi?n recurrente en L2. Los hallazgos incidentales indican nodularidades dispersas que requieren un seguimiento con CT sin contraste en 9 meses a un a?o. La tomograf?a computarizada del abdomen indica carolina pared levemente engrosada de la vejiga que podr?a ser hipertrofia o cistitis. Hay cambios qu?sticos en los ri?ones. La tomograf?a computarizada de holden y russell es negativa para hallazgos agudos. Por favor, seguimiento con el m?dico de atenci?n primaria. [place] Tylenol 650 mg cada 6 horas seg?n sea necesario para controlar el dolor. Le dimos carolina dosis de Tylenol a las 22:00, read pr?xima dosis se puede ivy a las 04:00. Viviana por elegir jazzy departamento de emergencias para read evaluaci?n. Por favor, kristina un seguimiento con el m?dico de atenci?n primaria seg?n sea necesario. Regrese al departamento de emergencias por cualquier s?ntoma nuevo, preocupante o que empeore. you were evaluated for injury sustained from a fall. CT scan indicates a recurrent compression fracture at L2. Incidental findings indicate scattered nodularities that require a noncontrast CT scan follow-up in [address] scan of the abdomen indicates a mildly thickened wall of the bladder which could be hypertrophy or cystitis. There are cystic changes in the kidneys. CT scan of head and neck are negative for acute findings. Please follow-up with the primary care physician. Take Tylenol 650 mg every 6 hours as needed for pain management. We gave you dose of Tylenol at 22:00, your next dose Can be taken at 04:00. Thank you for choosing this emergency department for evaluation. Please follow-up with primary care physician as needed. Return to the emergency department for any new, concerning, or worsening symptoms. <DAVIDA Kim - Last Filed: 09/27/22 17:23> Prescriptions: No Action atorvastatin [Lipitor] 40 mg Tablet 40 mg PO BEDTIME enalapril maleate 5 mg Tablet 5 mg PO DAILY donepezil [Aricept] 10 mg Tablet 10 mg PO BEDTIME metformin 850 mg Tablet 850 mg PO BID@0900,1700 cyanocobalamin (vitamin B-12) 1,000 mcg Tablet 1,000 mcg PO DAILY famotidine [Pepcid] 20 mg Tablet 20 mg PO BID memantine 5 mg Tablet 5 mg PO BID aspirin 81 mg Tablet,Chewable 81 mg PO DAILY Qty: 30 0RF metoprolol tartrate 25 mg tablet 12.5 mg PO BID Qty: 60 0RF <DAVIDA Kim - Last Filed: 09/27/22 17:23> Referrals: Jazmin Rosenbaum MD [Physician] - 1 day ( [facility]) [facility] [Primary Care Provider] - 2 weeks ( Primary care follow- up) <DAVIDA Kim - Last Filed: 09/27/22 17:23> Interventions: ED Discharge Assessment Last Done: 09/27/22 22:06 <DAVIDA Kim - Last Filed: 09/27/22 17:23> Discharge Date/Time: 09/27/22 22:08 <DAVIDA Kim - Last Filed: 09/27/22 17:23>
[2022-09-27 17:19] VITALS: BP 123/90; PULSE 115; RESP 16; TEMP 36.3; O2SAT 96; BMI 21.0
--- NOTE | 2022-09-27 17:19 | ECG_ITS ---
Test Reason : fall Blood Pressure : / mmHG Vent. 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 rate has increased BY 40 BPM Referred By: Ursula Cordoba Electronically Signed By:JESUS ALBERTO HEATON MD
[2022-09-27 18:19] LABS: MANUAL DIFF FLAG NO
[2022-09-27 18:28] LABS: Prothrombin Time 11.4 SEC (10.0-13.1)
[2022-09-27 18:42] LABS: Basophils Absolute Auto 0.1 X10*3/uL (0.0-0.2); Basophils Percent Auto 0.4 % (0-2); Eosinophils Absolute Auto 0.8 X10*3/uL (0.0-0.4); Eosinophils Percent Auto 6.6 % (0-4); Hematocrit 47.6 % (42.0-52.0); Hemoglobin 15.5 g/dl (14.0-18.0); Imm Gran Abs Auto 0.09 X10*3/uL (0.00-0.03); Imm Gran Pct Auto 0.8 % (0.0-0.4); Mean Corpuscular HGB Conc 32.6 g/dl (31.0-36.0); Mean Corpuscular Volume 92.2 fL (80.0-98.0); Mean Platelet Volume 10.3 fL (9.4-12.4); Monocytes Percent Auto 8.3 % (2-11); Neutrophils Absolute Auto 7.8 x10*3/uL (2.0-8.3); Neutrophils Percent Auto 66.9 % (45-73); Platelet Count 236 X10*3/uL (160-400); Red Blood Count 5.16 X10*6/uL (4.60-5.80); Red Cell Distribution Width 14.1 % (11.0-16.0); White Blood Count 11.7 X10*3/uL (4.8-10.8)
[2022-09-27 18:45] LABS: Alanine Aminotransferase 24 U/L (0-40); Albumin Level 4.2 g/dL (3.5-5.0); Alkaline Phosphatase 106 U/L (39-117); Anion Gap 15 (12-20); Aspartate Amino Transferase 44 U/L (5-37); Bilirubin Direct 0.3 mg/dL (0.0-0.5); Blood Urea Nitrogen 23 mg/dL (9-16); Calcium 10.4 mg/dL (8.4-10.2); Carbon Dioxide 27 mmol/L (22-29); Chloride 103 mmol/L (96-108); Creatinine Clr Calc Pharmacy 50.1; Estimated Glomerular Filt Rate > 60; Glucose Random 135 mg/dL (60-115); Magnesium 1.8 mg/dL (1.6-2.6); Potassium 4.8 mmol/L (3.3-5.1); Sodium 140 mmol/L (135-145); Troponin-I High Sensitivity 4.4 ng/L (<3.5-35.0)
[2022-09-27 20:19] VITALS: BP 159/91; PULSE 109; RESP 16; TEMP 36.6; O2SAT 97
== END 2022-09-27 22:08 | disposition home or self-care (01) ==
PROVIDERS: Physician Assistant; Emergency Provider Internal Medicine
DX: M54.50 Low back pain, unspecified (principal); N30.90 Cystitis, unspecified without hematuria; R10.2 Pelvic and perineal pain; R51.9 Headache, unspecified; M54.6 Pain in thoracic spine; M54.2 Cervicalgia; Z79.899 Other long term (current) drug therapy
CPT/HCPCS: 36415; 70450; 71250; 72125; 74176; 80048; 80076; 83735; 84484; 85025; 85610; 93005; 99284

== ENCOUNTER 2023-01-27 16:51 | Inpatient (IN) | payer MEDICARE, MEDICAID, SELFPAY ==
[2023-01-27] VITALS (10 sets, daily range): BP systolic 150–187; BP diastolic 69–98; PULSE 97–122; RESP 19–38; TEMP 36.6–37.6; O2SAT 78–100; BMI 23.4
--- NOTE | ~2023-01-27 | CT_ITS ---
EXAMINATION: CT CHEST WITHOUT CONTRAST CLINICAL INFORMATION: Orthopnea. Cough. Hypoxia. COMPARISON: 09/27/2022 TECHNIQUE: Multidetector volumetric CT imaging of the chest was done. Axial MIP volume rendering provided. Sagittal and coronal reformatted images were obtained. This CT examination was performed using dose optimization techniques as appropriate, variously including the following: *Automated exposure control *Adjustment of mA and/or kV according to patient size (this includes techniques or standardized protocols for targeted exams where dose is matched to indication/reason for exam; i.e. extremities or head) *Use of iterative reconstruction technique DLP: 313 mGy-cm FINDINGS: LUNGS: Elevated right hemidiaphragm. Bandlike opacities at both lung bases. Motion limits evaluation throughout the study. Mild centrilobular emphysema. No pulmonary mass or definitive nodule identified. No pleural effusion or pneumothorax. MEDIASTINUM: Normal heart size with coronary artery calcifications. Enlarged and heterogeneous thyroid gland. Calcified mediastinal lymph nodes. Mildly prominent subcarinal node. CORONARY ARTERY CALCIFICATION: Present. AXILLA: No lymphadenopathy. UPPER ABDOMEN: Calcified granulomata of the liver and spleen. OSSEOUS STRUCTURES: No acute or suspicious osseous abnormality. L2 vertebral body compression deformity again noted.. CT/CT chest wo IV con IMPRESSION: 1. Limited evaluation of the lungs due to motion. Bandlike opacities at both lung bases likely represent atelectasis. Mild emphysema. 2. Evidence of prior granulomatous disease. 3. Enlarged and heterogeneous thyroid gland. Fleischner guidelines were followed.
--- NOTE | ~2023-01-27 | XR_ITS ---
EXAMINATION: XR CHEST CLINICAL INFORMATION: Hypoxia. Question CHF. COMPARISON: 01/27/2023 TECHNIQUE: Frontal view of the chest was obtained. FINDINGS: Cardiac leads overlie the chest. The lungs are well expanded. Patchy retrocardiac opacity remains. No edema. No pleural effusion. No pneumothorax. The cardiomediastinal silhouette is unchanged, with a calcified aorta. Degenerative changes in the shoulders. XR/XR chest 1V IMPRESSION: Persistent retrocardiac opacity which could represent atelectasis or pneumonia. No edema.
--- NOTE | ~2023-01-27 | XR_ITS ---
EXAMINATION: PORTABLE CHEST 1 VIEW CLINICAL INFORMATION: Shortness of breath. COMPARISON: No recent pertinent prior studies are available for comparison. TECHNIQUE: Portable frontal view of the chest was obtained. FINDINGS: The lungs are hypoexpanded with mild chronic appearing reticular markings seen. Mild asymmetric elevation the right hemidiaphragm. No focal infiltrate, effusion, edema, or pneumothorax. Cardiac and mediastinal silhouettes are within normal limits for technique. No acute bony abnormality seen. XR/XR chest 1V IMPRESSION: Hypoexpanded with chronic appearing reticular markings but no acute process seen otherwise.
--- NOTE | 2023-01-27 17:29 | ECG_ITS ---
Test Reason : Shortness of breath Blood Pressure : / mmHG Vent. Rate : 113 BPM Atrial Rate : 113 BPM P-R Int : 130 ms QRS Dur : 080 ms QT Int : 328 ms P-R-T Axes : 067 -04 053 degrees QTc Int : 449 ms Sinus tachycardia Inferior infarct (cited on or before 27-SEP-2003) Abnormal ECG When compared with ECG of 27-SEP-2022 18:07, Premature supraventricular complexes are no longer Present Referred By: Clair Dominguez Electronically Signed By:Miguel Marrufo
--- NOTE | 2023-01-27 17:30 | ED.SOB ---
HPI - SOB/Dyspnea General Chief Complaint: Upper Respiratory Symptoms Stated Complaint: cough for few weeks, lots of phlegm, dementia Time Seen by Provider: 01/27/23 17:29 Source: patient and family (Daughter and son-in-law) Mode of arrival: ambulatory History of Present Illness HPI Narrative: 83-year-old male with history of diabetes, high blood pressure, prior CVA, dementia who is brought in by his family for ongoing cough for a few weeks, lots of phlegm and then appeared to be significantly worsened today with shortness of breath. Related Data Home Medications Medication Instructions Recorded Confirmed atorvastatin 40 mg tablet (Lipitor) 40 mg PO BEDTIME 11/03/21 01/27/23 cyanocobalamin (vitamin B-12) 1,000 mcg PO DAILY 11/03/21 01/27/23 1,000 mcg tablet enalapril maleate 5 mg tablet 5 mg PO DAILY 11/03/21 01/27/23 famotidine 20 mg tablet (Pepcid) 20 mg PO QAM 11/03/21 01/27/23 memantine 5 mg tablet 5 mg PO BID 11/03/21 01/27/23 metformin 850 mg tablet 850 mg PO BID 11/03/21 01/27/23 omeprazole 20 mg capsule,delayed 20 mg PO DAILY 01/27/23 01/27/23 release Previous Rx's Medication Instructions Recorded aspirin 81 mg chewable tablet 81 mg PO DAILY #30 tabs 11/05/21 Allergies Allergy/AdvReac Type Severity Reaction Status Date / Time No Known Allergies Allergy Verified 01/27/23 17:17 Review of Systems Review of Systems: Pertinent positives and negatives as stated in HPI PMFSH Past Medical History Source: nursing notes reviewed Medical History Dementia Diabetes HTN (hypertension) Weakness Social History Social History Alcohol intake: former Patient Tobacco Use Status: Tobacco use Unknown Smoked in Last 30 Days: No Use of substances other than those prescribed or required for medical reasons: No Advance Directives: Yes Advance Directives on File: Yes Advance Directives Date on File: 11/04/21 service: No Current occupational status: retired Physical Exam Vital Signs: Vital Signs: Last Vital Signs Temp 99.7 F 01/27/23 17:59 Pulse 97 01/27/23 19:56 Resp 31 H 01/27/23 19:56 BP 150/88 H 01/27/23 19:56 Pulse Ox 92 01/27/23 19:56 O2 Del Method BiPAP 01/27/23 19:56 O2 Flow Rate 3.5 01/27/23 17:45 FiO2 40 01/27/23 19:56 Oxygen Flow Rate 3.5 01/27/23 17:45 BMI result Body Mass Index 23.4 VITAL SIGNS: Reviewed. GENERAL: Frail, chronically ill, in mild distress. HEAD: Normocephalic/atraumatic EYES: PERRLA, EOMI EARS: Ext canals without abnormality NOSE: Nares patent bilateral OROPHARYNX: no oral lesions noted, posterior pharynx clear NECK: Supple, no adenopathy LUNGS: Increased work of breathing, retractions present, tachypnea present, coarse rhonchi bilaterally with rales. SpO2<78%> increased to 91/92% on 7 L via nasal cannula CARDIOVASCULAR: Regular rate and rhythm without noted murmurs, no JVD or lower extremity edema. ABDOMEN: Soft, non-tender, non-distended with bowel sounds. MUSCULOSKELETAL: No tenderness, deformities, or effusions noted on gross inspection. EXTREMITIES: No cyanosis, clubbing or edema. SKIN: Inspection of the skin reveals no rashes NEUROLOGIC: Alert and oriented x 2. Strength and sensation to light touch were grossly intact x 4. Medications Administered Discontinued Medications Generic Name Dose Route Start Last Admin Trade Name Freq PRN Reason Stop Dose Admin Sodium Chloride 500 mls @ 999 mls/hr 01/27/23 18:00 01/27/23 19:06 Ns IV 01/27/23 18:30 Infused .Q31M JEAN Infusion Piperacillin Sod/Tazobactam 50 mls @ 100 mls/hr 01/27/23 17:56 01/27/23 19:58 Sod 3.375 gm/ Sodium Chloride IV 01/27/23 18:25 Infused ONCE ONE Infusion Labetalol HCl 2.5 mg 01/27/23 17:45 01/27/23 18:03 Labetalol Hcl 100 Mg/20 Ml Vial IVPUSH 01/27/23 17:46 2.5 mg ONCE ONE Administration Medical Decision Making Medical Decision Making [facility] Narrative: 1730: 83-year-old male with initial presentation of gasping breaths and increased work of breathing, provided supplemental oxygen and noted that patient is significantly hypertensive, suspect the possibility of pneumonia because of the duration of his symptoms with cough, possibility of CHF as he is noted to be hypertensive. On review of prior documentation he had an NSTEMI in October of 2021 and at that time the echo demonstrated diastolic dysfunction. on bedside ultrasound pulmonary exam, findings suggestive of pneumonia as well as fluid overload with a presence of B lines, no pleural effusion noted 1734: I asked RT to change oxygen delivery to the Oxymizer with good maintenance of oxygenation. 1739: I discussed briefly with the son-in-law states that the patient is DNR/DNI, but this is being confirmed by nursing with the healthcare proxy who is his daughter and is at bedside. 1924: Decision to place pt on BiPAP due to hypercapnic acidosis as well as lactic acidosis 2047: Repeat VBG demonstrates corrected acidotic state in suspect same will be demonstrated by the lactic acid as well. I discussed with the inpatient hospitalist who confirms acceptance of admission. Differential Diagnosis Please see the discussion above Consult Healthcare Provider Management of the patient was discussed with: Hospitalist Please see the discussion above Lab Data Please see the discussion above 01/27/23 17:35 01/27/23 17:35 Labs: Lab Results 01/27/23 01/27/23 01/27/23 Range/Units 17:35 17:35 17:35 WBC 15.8 H (4.8-10.8) X10*3/uL RBC 4.94 (4.60-5.80) X10*6/uL Hgb 15.1 (14.0-18.0) g/dl Hct 46.5 (42.0-52.0) % MCV 94.1 (80.0-98.0) fL MCH 30.6 (27.0-33.0) pg MCHC 32.5 (31.0-36.0) g/dl RDW 13.7 (11.0-16.0) % Plt Count 251 (160-400) X10*3/uL MPV 10.4 (9.4-12.4) fL Immature Gran % (Auto) 0.5 H (0.0-0.4) % Neut % (Auto) 86.6 H (45-73) % Lymph % (Auto) 7.1 L (20-40) % Elbert % (Auto) 4.7 (2-11) % Eos % (Auto) 0.7 (0-4) % Baso % (Auto) 0.4 (0-2) % Lymph # (Auto) 1.1 L (1.2-4.9) X10*3/uL Elbert # (Auto) 0.7 (0.1-1.2) X10*3/uL Eos # (Auto) 0.1 (0.0-0.4) X10*3/uL Baso # (Auto) 0.1 (0.0-0.2) X10*3/uL Abs Immat Gran (auto) 0.08 H (0.00-0.03) X10*3/uL Absolute Neuts (auto) 13.7 H (2.0-8.3) x10*3/uL Absolute Nucleated RBC 0.000 (0.0-0.012) X10*3/uL Nucleated RBC % (auto) 0.0 (0.0-0.2) /100WBC PT 12.8 (10.0-13.1) SEC INR 1.1 (0.9-1.1) VBG pH (7.32-7.43) VBG pCO2 mmHg VBG pO2 mmHg VBG HCO3 (22-26) mmol/L VBG O2 Saturation % VBG Base Excess mmol/L Sodium (135-145) mmol/L Potassium (3.3-5.1) mmol/L Chloride (96-108) mmol/L Carbon Dioxide (22-29) mmol/L Anion Gap (12-20) BUN (9-16) mg/dL Creatinine (0.5-1.4) mg/dL Estim Creat Clear Calc Estimated GFR Random Glucose (60-115) mg/dL Lactic Acid (0.5-2.0) mmol/L Calcium (8.4-10.2) mg/dL Magnesium (1.6-2.6) mg/dL Total Bilirubin (0.0-1.0) mg/dL AST (5-37) U/L ALT (0-40) U/L Alkaline Phosphatase (39-117) U/L Troponin I High Sens (<3.5-35.0) ng/L B-Natriuretic Peptide 135 H (<100) pg/mL Total Protein (6.5-8.0) g/dL Albumin (3.5-5.0) g/dL Urine Color Urine Appearance Urine pH (5.0-9.0) Ur Specific Wadsworth (1.005-1.025) Urine Protein (Neg-Trace) mg/dL Urine Glucose (UA) (Negative) mg/dL Urine Ketones (Negative) mg/dL Urine Blood (Negative) Urine Nitrite (Negative) Ur Leukocyte Esterase (Negative) Urine RBC (0-2) /HPF Urine WBC (0-5) /HPF Ur Squamous Epith Cells (0-2) /HPF Urine Bacteria (None Seen) Hyaline Casts (0-2) /LPF 01/27/23 01/27/23 01/27/23 Range/Units 18:48 18:48 18:48 WBC (4.8-10.8) X10*3/uL RBC (4.60-5.80) X10*6/uL Hgb (14.0-18.0) g/dl Hct (42.0-52.0) % MCV (80.0-98.0) fL MCH (27.0-33.0) pg MCHC (31.0-36.0) g/dl RDW (11.0-16.0) % Plt Count (160-400) X10*3/uL MPV (9.4-12.4) fL Immature Gran % (Auto) (0.0-0.4) % Neut % (Auto) (45-73) % Lymph % (Auto) (20-40) % Elbert % (Auto) (2-11) % Eos % (Auto) (0-4) % Baso % (Auto) (0-2) % Lymph # (Auto) (1.2-4.9) X10*3/uL Elbert # (Auto) (0.1-1.2) X10*3/uL Eos # (Auto) (0.0-0.4) X10*3/uL Baso # (Auto) (0.0-0.2) X10*3/uL Abs Immat Gran (auto) (0.00-0.03) X10*3/uL Absolute Neuts (auto) (2.0-8.3) x10*3/uL Absolute Nucleated RBC (0.0-0.012) X10*3/uL Nucleated RBC % (auto) (0.0-0.2) /100WBC PT (10.0-13.1) SEC INR (0.9-1.1) VBG pH (7.32-7.43) VBG pCO2 mmHg VBG pO2 mmHg VBG HCO3 (22-26) mmol/L VBG O2 Saturation % VBG Base Excess mmol/L Sodium 146 H (135-145) mmol/L Potassium 4.8 (3.3-5.1) mmol/L Chloride 109 H (96-108) mmol/L Carbon Dioxide 29 (22-29) mmol/L Anion Gap 13 (12-20) BUN 18 H (9-16) mg/dL Creatinine 0.88 (0.5-1.4) mg/dL Estim Creat Clear Calc 55.3 Estimated GFR > 60 Random Glucose 212 H (60-115) mg/dL Lactic Acid 2.4 H* (0.5-2.0) mmol/L Calcium 10.2 (8.4-10.2) mg/dL Magnesium 2.0 (1.6-2.6) mg/dL Total Bilirubin 0.8 (0.0-1.0) mg/dL AST 32 (5-37) U/L ALT 21 (0-40) U/L Alkaline Phosphatase 99 (39-117) U/L Troponin I High Sens 17.2 D (<3.5-35.0) ng/L B-Natriuretic Peptide (<100) pg/mL Total Protein 8.2 H (6.5-8.0) g/dL Albumin 3.9 (3.5-5.0) g/dL Urine Color Urine Appearance Urine pH (5.0-9.0) Ur Specific Wadsworth (1.005-1.025) Urine Protein (Neg-Trace) mg/dL Urine Glucose (UA) (Negative) mg/dL Urine Ketones (Negative) mg/dL Urine Blood (Negative) Urine Nitrite (Negative) Ur Leukocyte Esterase (Negative) Urine RBC (0-2) /HPF Urine WBC (0-5) /HPF Ur Squamous Epith Cells (0-2) /HPF Urine Bacteria (None Seen) Hyaline Casts (0-2) /LPF 01/27/23 01/27/23 01/27/23 Range/Units 18:55 19:55 20:39 WBC (4.8-10.8) X10*3/uL RBC (4.60-5.80) X10*6/uL Hgb (14.0-18.0) g/dl Hct (42.0-52.0) % MCV (80.0-98.0) fL MCH (27.0-33.0) pg MCHC (31.0-36.0) g/dl RDW (11.0-16.0) % Plt Count (160-400) X10*3/uL MPV (9.4-12.4) fL Immature Gran % (Auto) (0.0-0.4) % Neut % (Auto) (45-73) % Lymph % (Auto) (20-40) % Elbert % (Auto) (2-11) % Eos % (Auto) (0-4) % Baso % (Auto) (0-2) % Lymph # (Auto) (1.2-4.9) X10*3/uL Elbert # (Auto) (0.1-1.2) X10*3/uL Eos # (Auto) (0.0-0.4) X10*3/uL Baso # (Auto) (0.0-0.2) X10*3/uL Abs Immat Gran (auto) (0.00-0.03) X10*3/uL Absolute Neuts (auto) (2.0-8.3) x10*3/uL Absolute Nucleated RBC (0.0-0.012) X10*3/uL Nucleated RBC % (auto) (0.0-0.2) /100WBC PT (10.0-13.1) SEC INR (0.9-1.1) VBG pH 7.27 L 7.41 (7.32-7.43) VBG pCO2 68 53 mmHg VBG pO2 35 41 mmHg VBG HCO3 32 H 34 H (22-26) mmol/L VBG O2 Saturation 49.0 67.0 % VBG Base Excess 3.0 8.1 mmol/L Sodium (135-145) mmol/L Potassium (3.3-5.1) mmol/L Chloride (96-108) mmol/L Carbon Dioxide (22-29) mmol/L Anion Gap (12-20) BUN (9-16) mg/dL Creatinine (0.5-1.4) mg/dL Estim Creat Clear Calc Estimated GFR Random Glucose (60-115) mg/dL Lactic Acid (0.5-2.0) mmol/L Calcium (8.4-10.2) mg/dL Magnesium (1.6-2.6) mg/dL Total Bilirubin (0.0-1.0) mg/dL AST (5-37) U/L ALT (0-40) U/L Alkaline Phosphatase (39-117) U/L Troponin I High Sens (<3.5-35.0) ng/L B-Natriuretic Peptide (<100) pg/mL Total Protein (6.5-8.0) g/dL Albumin (3.5-5.0) g/dL Urine Color Yellow Urine Appearance Clear Urine pH 5.5 (5.0-9.0) Ur Specific Wadsworth 1.025 (1.005-1.025) Urine Protein 300 (3+) H (Neg-Trace) mg/dL Urine Glucose (UA) 100 H (Negative) mg/dL Urine Ketones Negative (Negative) mg/dL Urine Blood Moderate (2+) H (Negative) Urine Nitrite Negative (Negative) Ur Leukocyte Esterase Negative (Negative) Urine RBC >20 H (0-2) /HPF Urine WBC 0-5 (0-5) /HPF Ur Squamous Epith Cells 0-2 (0-2) /HPF Urine Bacteria None Seen (None Seen) Hyaline Casts 3-5 (0-2) /LPF Independent Interpretation I performed an independent interpretation of an: EKG Interpretation: Sinus tachycardia, HR-113, no STEMI, MO/QRS/QTC is within normal limits. Radiology Impression Radiologist Impression: My interpretation is in agreement with radiology's impression. External Record Review External record reviewed: Prior outpatient labs Chronic Conditions Patient?s care impacted by: Diabetes and Hypertension Discharge Plan Discharge Clinical Impression: Hypertensive urgency, Pneumonia, Hypercapnia, Hypoxia Patient Disposition: Admitted As Inpatient
[2023-01-27 17:41] LABS: MANUAL DIFF FLAG NO
[2023-01-27 17:49] LABS: Basophils Absolute Auto 0.1 X10*3/uL (0.0-0.2); Basophils Percent Auto 0.4 % (0-2); Eosinophils Absolute Auto 0.1 X10*3/uL (0.0-0.4); Eosinophils Percent Auto 0.7 % (0-4); Hematocrit 46.5 % (42.0-52.0); Hemoglobin 15.1 g/dl (14.0-18.0); Imm Gran Abs Auto 0.08 X10*3/uL (0.00-0.03); Imm Gran Pct Auto 0.5 % (0.0-0.4); Lymphocytes Absolute Auto 1.1 X10*3/uL (1.2-4.9); Lymphocytes Percent Auto 7.1 % (20-40); Mean Corpuscular HGB Conc 32.5 g/dl (31.0-36.0); Mean Corpuscular Hemoglobin 30.6 pg (27.0-33.0); Mean Corpuscular Volume 94.1 fL (80.0-98.0); Mean Platelet Volume 10.4 fL (9.4-12.4); Monocytes Absolute Auto 0.7 X10*3/uL (0.1-1.2); Monocytes Percent Auto 4.7 % (2-11); Neutrophils Absolute Auto 13.7 x10*3/uL (2.0-8.3); Neutrophils Percent Auto 86.6 % (45-73); Platelet Count 251 X10*3/uL (160-400); Red Blood Count 4.94 X10*6/uL (4.60-5.80); Red Cell Distribution Width 13.7 % (11.0-16.0); White Blood Count 15.8 X10*3/uL (4.8-10.8)
[2023-01-27 17:54] LABS: INTERNATIONAL NORM RATIO 1.1 (0.9-1.1); Prothrombin Time 12.8 SEC (10.0-13.1)
[2023-01-27] MEDS: Labetalol HCL 100 MG/20 ML VIAL IVPUSH (18:03)
[2023-01-27] MEDS: 0.9 % Sodium Chloride 500 ML 999 ML IV (18:03)
[2023-01-27 18:12] LABS: B Type Natriuretic Peptide 135 pg/mL (<100)
[2023-01-27] MEDS: Piperacillin Sodium/Tazobactam 3.375 GM in 0.9 % Sodium Chloride 50 ML IV (18:45)
[2023-01-27 19:03] LABS: VBG HCO3 32 mmol/L (22-26); VBG pCO2 68 mmHg; VBG pH 7.27 (7.32-7.43); VBG pO2 35 mmHg
[2023-01-27 19:05] LABS: Venous Blood Gas Refer to POC result
[2023-01-27 19:21] LABS: Lactic Acid 2.4 mmol/L (0.5-2.0)
[2023-01-27 19:22] LABS: Alanine Aminotransferase 21 U/L (0-40); Albumin Level 3.9 g/dL (3.5-5.0); Alkaline Phosphatase 99 U/L (39-117); Anion Gap 13 (12-20); Aspartate Amino Transferase 32 U/L (5-37); Bilirubin Total 0.8 mg/dL (0.0-1.0); Blood Urea Nitrogen 18 mg/dL (9-16); Calcium 10.2 mg/dL (8.4-10.2); Carbon Dioxide 29 mmol/L (22-29); Chloride 109 mmol/L (96-108); Creatinine Clr Calc Pharmacy 55.3; Estimated Glomerular Filt Rate > 60; Glucose Random 212 mg/dL (60-115); Potassium 4.8 mmol/L (3.3-5.1); Sodium 146 mmol/L (135-145); Total Protein 8.2 g/dL (6.5-8.0)
[2023-01-27 19:29] LABS: Troponin-I High Sensitivity 17.2 ng/L (<3.5-35.0)
--- NOTE | 2023-01-27 20:00 | PC.NURSE ---
SWITCHED TO BIPAP 40% FIO2. SPO2 AT 92-93%. PT IS LESS TACHYPNEIC AT THIS TIME. HAS REMAINED ALERT, ORIENTED X2 HE IS AT BASELINE. DAUGHTER AND SON IN LAW AT BEDSIDE PROVIDING ALL NECESSARY INFORMATION. STRAIGHT CATH COMPLETED FOR UA SAMPLE, AWAITING RESULTS.
[2023-01-27 20:02] LABS: Appearance Urine Clear; Color Urine Yellow; Glucose Urine UA 100 mg/dL (Negative); Leukocyte Esterase Urine Negative (Negative); Nitrite Urine Negative (Negative); PH 5.5 (5.0-9.0); Specific Gravity - Urine 1.025 (1.005-1.025); UMIC TRIGGER UACC YES; Urine Blood Moderate (2+) (Negative); Urine Ketones Negative (Negative); Urine Protein 300 (3+) mg/dL (Neg-Trace)
[2023-01-27 20:14] LABS: Bacteria Urine None Seen (None Seen); RBC Urine >20 /HPF (0-2); Squamous Epithelial Cell Urine 0-2 /HPF (0-2); WBC Urine 0-5 /HPF (0-5)
[2023-01-27 20:45] LABS: VBG Base Excess 8.1 mmol/L; VBG HCO3 34 mmol/L (22-26); VBG pCO2 53 mmHg; VBG pH 7.41 (7.32-7.43); VBG pO2 41 mmHg
[2023-01-27 20:50] LABS: Venous Blood Gas Refer to POC result
--- NOTE | 2023-01-27 20:50 | PHA.MEDREC ---
Pharmacy Consult ? Medication Reconciliation Pharmacy has completed the medication reconciliation. Spoke with patients family. They were able to go home and bring in his medications because they could not remember at the moment. His Metformin was last filled on 05/17/22 according to the medication bottle and claim history and there were still pills in his bottle, despite family telling me he takes it twice a day. The famotidine was prescribed as 20mg BID prn however they tell me he takes it once daily in the morning.
[2023-01-27 20:53] LABS: Reflex Lactate? Lactic Acid Added
[2023-01-27 21:05] LABS: Anion Gap 12 (12-20); Blood Urea Nitrogen 18 mg/dL (9-16); Carbon Dioxide 30 mmol/L (22-29); Chloride 108 mmol/L (96-108); Estimated Glomerular Filt Rate > 60; Glucose Random 181 mg/dL (60-115); Potassium 4.3 mmol/L (3.3-5.1); Sodium 146 mmol/L (135-145)
[2023-01-27 21:40] LABS: Glucose, Whole Blood 198 mg/dL (60-115)
--- NOTE | 2023-01-27 21:45 | PM.IMHP ---
History of Present Illness Date of Service: 01/27/23 Attending physician on admission: Kathryn Christy Chief Complaint: sob, cough 83-year-old male with history advanced dementia, [id number] type 2 diabetes, hypertension, GERD, hyperlipidemia, history of stroke with sequela of dysarthria, and history of NSTEMI presented to the ED earlier today with his daughter and son-in-law for evaluation of upper respiratory symptoms ongoing for 4 days. He is unable to provide much history due to his dysarthria and dementia and history is obtained from his daughter and son-in-law. Per their report, family members in the home and had an upper respiratory infection which she contracted about 4 days ago with productive cough and subjective fevers. This morning they noted marked shortness of breath, specifically orthopnea prompting their visit to the ED. No history CHF. On arrival, patient hypoxic to 78% placed on Oxy mass at 3.5 L. However patient with increased work of breathing with tachypnea up to 38 and continued to desaturate despite escalation to high-flow nasal cannula. Briefly placed on BiPAP and successfully titrated back to nasal cannula now maintaining oximetry 98-100%. There is a leukocytosis of 15.8. Renal function baseline. There is a mild hypernatremia 146 and mild hypercapnia 30, electrolytes otherwise normal. Glucose 212. Initial lactic acid 2.4. BNP 135. Urinalysis not indicative of infection. Negative for COVID-19. CXR showing hypoexpanded lungs with chronic appearing reticular markings but no acute process. Per ED provider, bedside ultrasound was performed showing a right lower lobe infiltrate with Glynn B lines. Prior to BiPAP, pH 7.27, pCO2 68, PO2 35, bicarb 32. Post BiPAP, pH improved to 7.41, pCO2 53, PO2 41, bicarb 34. Review of Systems Review of Systems: General: No fevers, malaise, unintentional weight loss HEENT: No blurred vision, diplopia. No sore throat, nasal congestion, rhinorrhea, sinus pain, ear pain Cardiovascular: + pleuritic chest pain. No chest pressure, palpitations, or leg edema Respiratory: +orthopnea, +productive cough. No wheezing GI: No abdominal pain, nausea, vomiting, diarrhea, constipation, melena, hematochezia : No dysuria, hematuria, increased urinary frequency, decreased urinary output MSK: No myalgia, back pain Neuro: No headaches, weakness, paresthesias Skin: No rashes or lesions [facility] Medical History Dementia Diabetes GERD (gastroesophageal reflux disease) History of CVA (cerebrovascular accident) HTN (hypertension) Hyperlipidemia Weakness Social History Alcohol intake: former Patient Tobacco Use Status: Tobacco use Unknown Smoked in Last 30 Days: No Use of substances other than those prescribed or required for medical reasons: No Advance Directives: Yes Advance Directives on File: Yes Advance Directives Date on File: 11/04/21 service: No Current occupational status: retired [employer] Allergies Allergy/AdvReac Type Severity Reaction Status Date / Time No Known Allergies Allergy Verified 01/27/23 17:17 Active Medications: Current Medications Trazodone HCl (Trazodone Hcl 50 Mg Tablet) 50 mg PO BEDTIME PRN PRN Reason: Insomnia Home Medications Medication Instructions Recorded Confirmed Last Taken Type atorvastatin 40 mg tablet (Lipitor) 40 mg PO BEDTIME 11/03/21 01/27/23 11/02/21 History cyanocobalamin (vitamin B-12) 1,000 mcg PO DAILY 11/03/21 01/27/23 11/03/21 History 1,000 mcg tablet enalapril maleate 5 mg tablet 5 mg PO DAILY 11/03/21 01/27/23 11/03/21 History famotidine 20 mg tablet (Pepcid) 20 mg PO QAM 11/03/21 01/27/23 11/03/21 History memantine 5 mg tablet 5 mg PO BID 11/03/21 01/27/23 11/03/21 History metformin 850 mg tablet 850 mg PO BID 11/03/21 01/27/23 11/03/21 History omeprazole 20 mg capsule,delayed 20 mg PO DAILY 01/27/23 01/27/23 Unknown History release Physical Exam Vital Signs and Narrative: Vital Signs: Last Vital Signs Temp 98.1 F 01/27/23 20:00 Pulse 100 01/27/23 20:00 Resp 35 H 01/27/23 20:00 BP 187/98 H 01/27/23 20:00 Pulse Ox 100 01/27/23 20:00 O2 Del Method Nasal Cannula 01/27/23 20:00 O2 Flow Rate 4 01/27/23 20:00 FiO2 40 01/27/23 19:56 Oxygen Flow Rate 3.5 01/27/23 17:45 BMI result Body Mass Index 23.4 Constitutional - Awake and Alert, No apparent distress Eyes - PERRLA, EOMI Cardiovascular - S1S2, RRR, No edema Respiratory - Normal lung expansion, Normal respiratory effort, No respiratory distress on 4L supplemental O2, demonstrated orthopnea, fine crackles bilaterally Gastrointestinal - NT / ND; +BS; No rebound or guarding Extremities - no calf tenderness bilaterally, no swelling Skin - Warm/Dry Neurological - Alert & oriented to self, CN II-XII in tact, 5/5 strength BUE and BLE Psychological - Appropriate affect Results Labs 01/27/23 17:35 01/27/23 20:45 Labs: Laboratory Results - last 24 hr 01/27/23 01/27/23 01/27/23 17:35 17:35 17:35 MCV 94.1 MCH 30.6 MCHC 32.5 RDW 13.7 Plt Count 251 MPV 10.4 Immature Gran % (Auto) 0.5 H Neut % (Auto) 86.6 H Lymph % (Auto) 7.1 L Phelps % (Auto) 4.7 Eos % (Auto) 0.7 Baso % (Auto) 0.4 Lymph # (Auto) 1.1 L Phelps # (Auto) 0.7 Eos # (Auto) 0.1 Baso # (Auto) 0.1 Abs Immat Gran (auto) 0.08 H Absolute Neuts (auto) 13.7 H Absolute Nucleated RBC 0.000 Nucleated RBC % (auto) 0.0 PT 12.8 INR 1.1 VBG pH VBG pCO2 VBG pO2 VBG HCO3 VBG O2 Saturation VBG Base Excess Anion Gap Estim Creat Clear Calc Estimated GFR POC Glucose Random Glucose Lactic Acid Calcium Magnesium Total Bilirubin AST ALT Alkaline Phosphatase Troponin I High Sens B-Natriuretic Peptide 135 H Total Protein Albumin Urine Color Urine Appearance Urine pH Ur Specific [place] Urine Protein Urine Glucose (UA) Urine Ketones Urine Blood Urine Nitrite Ur Leukocyte Esterase Urine RBC Urine WBC Ur Squamous Epith Cells Urine Bacteria Hyaline Casts 01/27/23 01/27/23 01/27/23 17:57 18:48 18:48 MCV MCH MCHC RDW Plt Count MPV Immature Gran % (Auto) Neut % (Auto) Lymph % (Auto) Phelps % (Auto) Eos % (Auto) Baso % (Auto) Lymph # (Auto) Phelps # (Auto) Eos # (Auto) Baso # (Auto) Abs Immat Gran (auto) Absolute Neuts (auto) Absolute Nucleated RBC Nucleated RBC % (auto) PT INR VBG pH VBG pCO2 VBG pO2 VBG HCO3 VBG O2 Saturation VBG Base Excess Anion Gap 13 Estim Creat Clear Calc 55.3 Estimated GFR > 60 POC Glucose 198 H Random Glucose 212 H Lactic Acid 2.4 H* Calcium 10.2 Magnesium 2.0 Total Bilirubin 0.8 AST 32 ALT 21 Alkaline Phosphatase 99 Troponin I High Sens B-Natriuretic Peptide Total Protein 8.2 H Albumin 3.9 Urine Color Urine Appearance Urine pH Ur Specific [place] Urine Protein Urine Glucose (UA) Urine Ketones Urine Blood Urine Nitrite Ur Leukocyte Esterase Urine RBC Urine WBC Ur Squamous Epith Cells Urine Bacteria Hyaline Casts 01/27/23 01/27/23 01/27/23 18:48 18:55 19:55 MCV MCH MCHC RDW Plt Count MPV Immature Gran % (Auto) Neut % (Auto) Lymph % (Auto) Phelps % (Auto) Eos % (Auto) Baso % (Auto) Lymph # (Auto) Phelps # (Auto) Eos # (Auto) Baso # (Auto) Abs Immat Gran (auto) Absolute Neuts (auto) Absolute Nucleated RBC Nucleated RBC % (auto) PT INR VBG pH 7.27 L VBG pCO2 68 VBG pO2 35 VBG HCO3 32 H VBG O2 Saturation 49.0 VBG Base Excess 3.0 Anion Gap Estim Creat Clear Calc Estimated GFR POC Glucose Random Glucose Lactic Acid Calcium Magnesium Total Bilirubin AST ALT Alkaline Phosphatase Troponin I High Sens 17.2 D B-Natriuretic Peptide Total Protein Albumin Urine Color Yellow Urine Appearance Clear Urine pH 5.5 Ur Specific [place] 1.025 Urine Protein 300 (3+) H Urine Glucose (UA) 100 H Urine Ketones Negative Urine Blood Moderate (2+) H Urine Nitrite Negative Ur Leukocyte Esterase Negative Urine RBC >20 H Urine WBC 0-5 Ur Squamous Epith Cells 0-2 Urine Bacteria None Seen Hyaline Casts 3-5 01/27/23 01/27/23 20:39 20:45 MCV MCH MCHC RDW Plt Count MPV Immature Gran % (Auto) Neut % (Auto) Lymph % (Auto) Phelps % (Auto) Eos % (Auto) Baso % (Auto) Lymph # (Auto) Phelps # (Auto) Eos # (Auto) Baso # (Auto) Abs Immat Gran (auto) Absolute Neuts (auto) Absolute Nucleated RBC Nucleated RBC % (auto) PT INR VBG pH 7.41 VBG pCO2 53 VBG pO2 41 VBG HCO3 34 H VBG O2 Saturation 67.0 VBG Base Excess 8.1 Anion Gap 12 Estim Creat Clear Calc 58.0 Estimated GFR > 60 POC Glucose Random Glucose 181 H Lactic Acid Calcium 10.0 Magnesium Total Bilirubin AST ALT Alkaline Phosphatase Troponin I High Sens B-Natriuretic Peptide Total Protein Albumin Urine Color Urine Appearance Urine pH Ur Specific [place] Urine Protein Urine Glucose (UA) Urine Ketones Urine Blood Urine Nitrite Ur Leukocyte Esterase Urine RBC Urine WBC Ur Squamous Epith Cells Urine Bacteria Hyaline Casts Imaging Radiologist's Impressions: Impressions Chest X-Ray 01/27/23 17:49 IMPRESSION: Hypoexpanded with chronic appearing reticular markings but no acute process seen otherwise. Assessment and Plan (1) Pneumonia: Status: Acute (2) Hypercapnia: Status: Acute (3) Hypoxia: Status: Acute (4) Sepsis: Status: Acute Plan 83-year-old male with history advanced dementia, [id number] type 2 diabetes, hypertension, GERD, hyperlipidemia, history of stroke with sequela of dysarthria, and history of NSTEMI admitted for RLL pneumonia with sepsis. #RLL pneumonia with sepsis -WBC 15.8, tachycardic, tachypneic. Lactic acidosis 2/2 metformin use, no end organ damanage. No severe sepsis/shock -CXR negative but bedside ultrasound revealed right lower lobe infiltrate performed by ED provider -IV ceftriaxone and azithromycin (initiated 01/27) -guaifenesin for cough -albuterol p.r.n. -negative for COVID-19, full viral respiratory panel pending -sputum culture, strep pneumo antigen, and Legionella antigen pending #Respiratory acidosis- resolved -2/2 to above -improved with bipap and compensated # orthopnea -CXR with possible cardiomegaly and possible venous congestion -BNP only 135, no pedal edema -Sx more likely r/t above. Will rule out CHF with echocardiogram #Acute hypoxemic hypercapnic respiratory failure- 2/2 RLL pneumonia -Continue supplemental O2 to maintain oximetry >92% # [id number] type 2 diabetes with hyperglycemia -POC glucose -diabetic diet -Humalog on sliding scale -hold metformin # hypertension-uncontrolled -given 2.5mg IV labetolol in ED -1 time dose amlodipine 5 mg administered, continue enalapril -monitor blood pressures # GERD -continue PPI, famotidine # CAD/HLD -continue ASA, statin # advanced dementia, unspecified type -continue memantine DVT prophylaxis-Lovenox Do not intubate Patient requires inpatient stay at least 2 midnights for management of right lower lobe pneumonia with sepsis and acute hypoxemic hypercapnic respiratory failure requiring IV antibiotics and supplemental O2 as well as rescue BiPAP and close monitoring for further decompensation Time Spent With Patient Time: Total time managing care of this patient today ____ minutes. Quality Stroke Does the patient have a stroke diagnosis?: No VTE Prior VTE?: No VTE Risk Level:: Medical - moderate - high VTE Device Contraindication: Treatment Not Indicated VTE Drug Contraindication: N/A - Med Ordered
[2023-01-27] MEDS: cefTRIAXone sodium 1 GM in 0.9 % Sodium Chloride 50 ML IV (22:17)
[2023-01-27] MEDS: Enoxaparin Sodium 40 MG/0.4 ML SYRINGE SUBCUT (22:17)
[2023-01-27 22:54] LABS: ~Lactic Acid-LAB USE ONLY 2.5 mmol/L (0.5-2.0)
[2023-01-27] MEDS: Azithromycin 500 MG in 0.9 % Sodium Chloride 250 ML 125 MG IV (23:15)
[2023-01-27] MEDS: 0.9 % Sodium Chloride Flush 3 ML SYRINGE IVFLUSH (23:18)
--- NOTE | 2023-01-27 23:40 | PC.NURSE ---
Report attempted at this time. Nurse unavailable to take report at this time.
--- NOTE | 2023-01-27 23:53 | PC.NURSE ---
Report to Maribel BUNDY on [facility].
[2023-01-28] VITALS (15 sets, daily range): BP systolic 129–188; BP diastolic 61–82; PULSE 61–103; RESP 16–27; TEMP 36.4–37.7; O2SAT 90–99; BMI 23.4
[2023-01-28 00:34] LABS: Reflex Lactate? 2 Y
[2023-01-28 01:15] LABS: ~Lactic Acid-LAB USE ONLY 1.8 mmol/L (0.5-2.0)
[2023-01-28] MEDS: Acetaminophen 325 MG TABLET 650 MG PO (01:59)
[2023-01-28] MEDS: traZODone HCL 50 MG TABLET PO (01:59)
[2023-01-28] MEDS: Labetalol HCL 100 MG/20 ML VIAL 10 MG IVPUSH (03:38)
--- NOTE | 2023-01-28 04:51 | PC.NURSE ---
Pt seen for 0400 rounds/vitals. Manual BP 188/78; HR 103; RR 27; O2 sat low 80's on 4L NC. Pt placed on 8L nonrebreather and RT was called. RT placed pt on HFNC 40L 100%. O2 sat improved to 94%. aware - ordered Labetolol 10mg IV Push. Pt medicated appropriately. CXR obtained. Repeat manual BP 158/72 HR 78. Pt resting comfortably with patient observer at bedside. Will continue with plan of care.
[2023-01-28 05:29] LABS: ABG Base Excess 6.8 mmol/L; ABG HCO3 33 mmol/L (22-26); ABG pCO2 55 mmHg (32-45); ABG pH 7.38 (7.35-7.45); ABG pO2 99 mmHg (83-108)
[2023-01-28] MEDS: Albuterol/Iprat 2.5/0.5MG 3 ML AMPUL.NEB INHALE (05:51)
[2023-01-28 06:10] LABS: ABG Refer to POC result
[2023-01-28 06:50] LABS: MANUAL DIFF FLAG NO
[2023-01-28 06:55] LABS: Basophils Percent Auto 0.3 % (0-2); Hematocrit 41.3 % (42.0-52.0); Hemoglobin 13.2 g/dl (14.0-18.0); Imm Gran Abs Auto 0.06 X10*3/uL (0.00-0.03); Imm Gran Pct Auto 0.5 % (0.0-0.4); Lymphocytes Percent Auto 7.9 % (20-40); Mean Corpuscular Hemoglobin 29.9 pg (27.0-33.0); Mean Corpuscular Volume 93.7 fL (80.0-98.0); Mean Platelet Volume 10.3 fL (9.4-12.4); Monocytes Absolute Auto 0.8 X10*3/uL (0.1-1.2); Monocytes Percent Auto 6.1 % (2-11); Neutrophils Absolute Auto 11.2 x10*3/uL (2.0-8.3); Neutrophils Percent Auto 85.2 % (45-73); Platelet Count 218 X10*3/uL (160-400); Red Blood Count 4.41 X10*6/uL (4.60-5.80); Red Cell Distribution Width 13.6 % (11.0-16.0); White Blood Count 13.1 X10*3/uL (4.8-10.8)
--- NOTE | 2023-01-28 07:00 | CA_ITS ---
Transthoracic Echocardiogram Patient (Last, First, Middle): Toni Anna, Gender: Male Date of : 1940 Age: 83 Procedure Date: 01/28/2023 Procedure Type: Transthoracic Echocardiogram Location: [facility] [place] Height: 167.64 cm Weight: 65.32 kg BSA: 1.74 m2 Heart Rate: 79 bpm BP: 129 / 61 mmHg Painter Maintenance: SB Referring MD: Misty HIGUERA Symptoms: ?chf, orthopnea Study Quality: Suboptimal/no plax window/limited apical window ECG Rhythm: Sinus Conclusions: - Technically limited study. - Limited doppler assessment of the valves. - Normal left ventricular size, thickness, and systolic function. The visually estimated ejection fraction is between 55-60%. - Normal right ventricular cavity size and systolic function. - Prominent epicardial adipose tissue noted. There is no evidence of pericardial effusion. - Diastolic function is indeterminate on the basis of available data. Findings Procedure Information The quality of the study was technically difficult. The study quality is limited by patients body habitus. Left Ventricle Normal left ventricular size, thickness, and systolic function. The visually estimated ejection fraction is between 55-60%. Regional wall motion abnormalities can not be excluded due to suboptimal endocardial definition. Diastolic function is indeterminate on the basis of available data. Right Ventricle Normal right ventricular cavity size and systolic function. Atria The left atrium was not well visualized. There is no evidence of interatrial shunt by color Doppler. Aortic Valve The aortic valve structure and function is likely normal. There is mild calcification of the aortic valve. Mitral Valve Likely normal mitral valve structure and function. There is no mitral valve regurgitation. There is no mitral valve stenosis. Pulmonic Valve The pulmonic valve is likely normal. Tricuspid Valve The tricuspid valve was not well visualized. Tricuspid regurgitation envelope is inadequate for calculation of right ventricular systolic pressure. Great Vessels All visible segments of the aorta are normal in size. The visualized portions of the pulmonary artery and branches are normal. Venous The inferior vena cava was not well visualized. Pericardium/Pleural Prominent epicardial adipose tissue noted. There is no evidence of pericardial effusion. Prior Study Comparison No significant change compared to prior study dated: 11/04/2021. Measurements 2D Linear Measurements IVSd: 0.88 0.6-0.9/0.6-1.0 cm LVIDd: 3.24 3.9-5.3/4.2-5.9 cm LVIDd Index: 1.86 2.4-3.2/2.2-3.1 cm/m2 LVIDs: 1.78 2.0-3.6 cm LVPWd: 0.90 0.7-1.1 cm LV Mass: 95.64 67-162/88-224 g LV Mass Index: 54.97 43-95/49-115 g/m2 LVOT Diam: 1.80 3.0+(-)1.3 cm Mitral Valve MV Pk E: 0.55 MV PK A: 0.66 MV Decel Time: 210.00 E/A: 0.80 E'Medial: 9.68 E/E' Med: 5.70 PHT: 61.00 MVA PHT: 3.[address] [place]: 2.63 LVOT LVOT Diam: 1.80 LVOT Area: 2.54 Diastolic Function MV Pk E: 0.55 MV Pk A: 0.66 E/A: 0.80 E'Medial: 9.68 E/E' Med: 5.70 Right Ventricle TAPSE (mm): 21.70 TVS' Wilber: 18.10 Pulmonary Valve PV Pk Wilber: 1.16 Peak PV Grad: 5.00 Updated in Other Vendor System with Status of Final Miguel Marrufo MD electronically signed on 01/28/2023 12:16:05 PM with status of Final
[2023-01-28 07:13] LABS: Anion Gap 13 (12-20); Blood Urea Nitrogen 15 mg/dL (9-16); Calcium 9.9 mg/dL (8.4-10.2); Carbon Dioxide 26 mmol/L (22-29); Chloride 110 mmol/L (96-108); Creatinine Clr Calc Pharmacy 63.2; Estimated Glomerular Filt Rate > 60; Glucose Random 152 mg/dL (60-115); Potassium 4.3 mmol/L (3.3-5.1); Sodium 145 mmol/L (135-145)
[2023-01-28 07:45] LABS: Glucose, Whole Blood 131 mg/dL (60-115)
[2023-01-28] MEDS: 0.9 % Sodium Chloride Flush 3 ML SYRINGE IVFLUSH ×2 (09:25→17:10)
[2023-01-28 11:22] LABS: Glucose, Whole Blood 130 mg/dL (60-115)
--- NOTE | 2023-01-28 11:36 | P.PNIM_ITS ---
Subjective Subjective Date of Service: 01/28/23 Interval History: f/u on sepsis, pna and acute resp failure interval history: on high flow, not talking at this time and looks very sick Physical Exam Vital Signs: Vital Signs: Last Vital Signs Temp 97.6 F 01/28/23 07:26 Pulse 80 01/28/23 07:26 Resp 18 01/28/23 07:46 BP 129/61 01/28/23 07:26 Pulse Ox 98 01/28/23 07:26 O2 Del Method High Flow Nasal C annula 01/28/23 07:26 O2 Flow Rate 45 01/28/23 07:26 FiO2 100 01/28/23 07:26 Oxygen Flow Rate 3.5 01/27/23 17:45 BMI result Body Mass Index 23.4 Const: Other: General: frail, confused Resp: rhonchi marguerite CVS: S1,S2,RRR GI: +BS, NT, no distention Skin: No rash Neuro: motor grossly intact Psych: flat Objective Data Active Medications Acetaminophen (Acetaminophen 325 Mg Tablet) 650 mg PO Q6H PRN PRN Reason: Pain, Mild (Pain Scale 1-3) Last Admin: 01/28/23 01:59 Dose: 650 mg Documented By: BESSIE Albuterol Sulfate (Albuterol Sulfate (0.083%) 2.5 Mg/3 Ml Vial.Neb) 2.5 mg INHALE RQ4H PRN PRN Reason: cough, sob Aspirin (Aspirin 81 Mg Tab.Chew) 81 mg PO DAILY [facility] Atorvastatin Calcium (Atorvastatin Calcium 40 Mg Tablet) 40 mg PO BEDTIME [facility] Cyanocobalamin (Cyanocobalamin (Vitamin B-12) 1,000 Mcg Tablet) 1,000 mcg PO DAILY [facility] Docusate Sodium (Docusate Sodium 100 Mg Capsule) 100 mg PO DAILY PRN PRN Reason: Constipation Enalapril Maleate (Enalapril Maleate 5 Mg Tablet) 5 mg PO DAILY [facility]; Protocol Enoxaparin Sodium (Enoxaparin Sodium 40 Mg/0.4 Ml Syringe) 40 mg SUBCUT Q24H [facility] Last Admin: 01/27/23 22:17 Dose: 40 mg Documented By: CARIDAD Glucose (Glucose Gel 15 Gm Gel..Gram.) 15 gm PO Q15M PRN; Protocol PRN Reason: per Hypoglycemia Standing Ord. Guaifenesin (Guaifenesin 200 Mg/10 Ml 10 Ml Liquid) 10 ml PO Q4H PRN PRN Reason: Cough Ceftriaxone Sodium 1 gm/ (Sodium Chloride) 50 mls @ 100 mls/hr IV Q24H [facility] Last Infusion: 01/27/23 22:49 Dose: 0 mls/hr Documented By: CARIDAD Azithromycin 500 mg/ Sodium (Chloride) 250 mls @ 125 mls/hr IV Q24H [facility] Stop: 01/30/23 01:14 Last Infusion: 01/28/23 01:34 Dose: 0 mls/hr Documented By: BESSIE Dextrose (D10) 250 mls @ 750 mls/hr IV Q15M PRN; Protocol PRN Reason: per Hypoglycemia Standing Ord. Insulin Human Lispro (Insulin Lispro 100 Unit/Ml 3 Ml Vial) 0 unit SUBCUT QIDACHS [facility]; Protocol Last Admin: 01/28/23 11:26 Dose: Not Given Documented By: MAL Non-Admin Reason: No Insulin Coverage Memantine (Memantine Hcl 5 Mg Tablet) 5 mg PO BID [facility] Last Admin: 01/27/23 22:32 Dose: Not Given Documented By: CARIDAD Non-Admin Reason: Patient Refused Omeprazole (Omeprazole 20 Mg Isaías.) 20 mg PO DAILY@0630 [facility] Last Admin: 01/28/23 06:44 Dose: Not Given Documented By: BESSIE Non-Admin Reason: Patient Condition Contraindication Ondansetron HCl (Ondansetron Hcl 4 Mg/2 Ml Vial) 4 mg IVPUSH Q8H PRN PRN Reason: Nausea and Vomiting Sodium Chloride (0.9 % Sodium Chloride Flush 3 Ml Syringe) 3 ml IVFLUSH QSHIFT [facility] Last Admin: 01/28/23 09:25 Dose: 3 ml Documented By: MAL Trazodone HCl (Trazodone Hcl 50 Mg Tablet) 50 mg PO BEDTIME PRN PRN Reason: Insomnia Last Admin: 01/28/23 01:59 Dose: 50 mg Documented By: BESSIE Labs 01/28/23 06:44 01/28/23 06:44 Labs: Laboratory Results - last 24 hr 01/27/23 01/27/23 01/27/23 17:35 17:35 17:35 MCV 94.1 MCH 30.6 MCHC 32.5 RDW 13.7 Plt Count 251 MPV 10.4 Immature Gran % (Auto) 0.5 H Neut % (Auto) 86.6 H Lymph % (Auto) 7.1 L Levy % (Auto) 4.7 Eos % (Auto) 0.7 Baso % (Auto) 0.4 Lymph # (Auto) 1.1 L Levy # (Auto) 0.7 Eos # (Auto) 0.1 Baso # (Auto) 0.1 Abs Immat Gran (auto) 0.08 H Absolute Neuts (auto) 13.7 H Absolute Nucleated RBC 0.000 Nucleated RBC % (auto) 0.0 PT 12.8 INR 1.1 O2 Saturation ABG pH at Pt Temp ABG pCO2 at Pt Temp ABG pO2 at Pt Temp ABG HCO3 ABG Base Excess (Actual) VBG pH VBG pCO2 VBG pO2 VBG HCO3 VBG O2 Saturation VBG Base Excess Anion Gap Estim Creat Clear Calc Estimated GFR POC Glucose Random Glucose Lactic Acid Lactic Acid F/U @ 2Hr Lactic Acid F/U @ 4Hr Calcium Magnesium Total Bilirubin AST ALT Alkaline Phosphatase Troponin I High Sens B-Natriuretic Peptide 135 H Total Protein Albumin Urine Color Urine Appearance Urine pH Ur Specific [place] Urine Protein Urine Glucose (UA) Urine Ketones Urine Blood Urine Nitrite Ur Leukocyte Esterase Urine RBC Urine WBC Ur Squamous Epith Cells Urine Bacteria Hyaline Casts 01/27/23 01/27/23 01/27/23 17:57 18:48 18:48 MCV MCH MCHC RDW Plt Count MPV Immature Gran % (Auto) Neut % (Auto) Lymph % (Auto) Levy % (Auto) Eos % (Auto) Baso % (Auto) Lymph # (Auto) Levy # (Auto) Eos # (Auto) Baso # (Auto) Abs Immat Gran (auto) Absolute Neuts (auto) Absolute Nucleated RBC Nucleated RBC % (auto) PT INR O2 Saturation ABG pH at Pt Temp ABG pCO2 at Pt Temp ABG pO2 at Pt Temp ABG HCO3 ABG Base Excess (Actual) VBG pH VBG pCO2 VBG pO2 VBG HCO3 VBG O2 Saturation VBG Base Excess Anion Gap 13 Estim Creat Clear Calc 55.3 Estimated GFR > 60 POC Glucose 198 H Random Glucose 212 H Lactic Acid 2.4 H* Lactic Acid F/U @ 2Hr Lactic Acid F/U @ 4Hr Calcium 10.2 Magnesium 2.0 Total Bilirubin 0.8 AST 32 ALT 21 Alkaline Phosphatase 99 Troponin I High Sens B-Natriuretic Peptide Total Protein 8.2 H Albumin 3.9 Urine Color Urine Appearance Urine pH Ur Specific [place] Urine Protein Urine Glucose (UA) Urine Ketones Urine Blood Urine Nitrite Ur Leukocyte Esterase Urine RBC Urine WBC Ur Squamous Epith Cells Urine Bacteria Hyaline Casts 01/27/23 01/27/23 01/27/23 18:48 18:55 19:55 MCV MCH MCHC RDW Plt Count MPV Immature Gran % (Auto) Neut % (Auto) Lymph % (Auto) Levy % (Auto) Eos % (Auto) Baso % (Auto) Lymph # (Auto) Levy # (Auto) Eos # (Auto) Baso # (Auto) Abs Immat Gran (auto) Absolute Neuts (auto) Absolute Nucleated RBC Nucleated RBC % (auto) PT INR O2 Saturation ABG pH at Pt Temp ABG pCO2 at Pt Temp ABG pO2 at Pt Temp ABG HCO3 ABG Base Excess (Actual) VBG pH 7.27 L VBG pCO2 68 VBG pO2 35 VBG HCO3 32 H VBG O2 Saturation 49.0 VBG Base Excess 3.0 Anion Gap Estim Creat Clear Calc Estimated GFR POC Glucose Random Glucose Lactic Acid Lactic Acid F/U @ 2Hr Lactic Acid F/U @ 4Hr Calcium Magnesium Total Bilirubin AST ALT Alkaline Phosphatase Troponin I High Sens 17.2 D B-Natriuretic Peptide Total Protein Albumin Urine Color Yellow Urine Appearance Clear Urine pH 5.5 Ur Specific [place] 1.025 Urine Protein 300 (3+) H Urine Glucose (UA) 100 H Urine Ketones Negative Urine Blood Moderate (2+) H Urine Nitrite Negative Ur Leukocyte Esterase Negative Urine RBC >20 H Urine WBC 0-5 Ur Squamous Epith Cells 0-2 Urine Bacteria None Seen Hyaline Casts 3-5 01/27/23 01/27/23 01/27/23 20:39 20:45 22:31 MCV MCH MCHC RDW Plt Count MPV Immature Gran % (Auto) Neut % (Auto) Lymph % (Auto) Levy % (Auto) Eos % (Auto) Baso % (Auto) Lymph # (Auto) Levy # (Auto) Eos # (Auto) Baso # (Auto) Abs Immat Gran (auto) Absolute Neuts (auto) Absolute Nucleated RBC Nucleated RBC % (auto) PT INR O2 Saturation ABG pH at Pt Temp ABG pCO2 at Pt Temp ABG pO2 at Pt Temp ABG HCO3 ABG Base Excess (Actual) VBG pH 7.41 VBG pCO2 53 VBG pO2 41 VBG HCO3 34 H VBG O2 Saturation 67.0 VBG Base Excess 8.1 Anion Gap 12 Estim Creat Clear Calc 58.0 Estimated GFR > 60 POC Glucose Random Glucose 181 H Lactic Acid Lactic Acid F/U @ 2Hr 2.5 H* Lactic Acid F/U @ 4Hr Calcium 10.0 Magnesium Total Bilirubin AST ALT Alkaline Phosphatase Troponin I High Sens B-Natriuretic Peptide Total Protein Albumin Urine Color Urine Appearance Urine pH Ur Specific [place] Urine Protein Urine Glucose (UA) Urine Ketones Urine Blood Urine Nitrite Ur Leukocyte Esterase Urine RBC Urine WBC Ur Squamous Epith Cells Urine Bacteria Hyaline Casts 01/28/23 01/28/23 01/28/23 00:52 05:20 06:44 MCV 93.7 MCH 29.9 MCHC 32.0 RDW 13.6 Plt Count 218 MPV 10.3 Immature Gran % (Auto) 0.5 H Neut % (Auto) 85.2 H Lymph % (Auto) 7.9 L Levy % (Auto) 6.1 Eos % (Auto) 0.0 Baso % (Auto) 0.3 Lymph # (Auto) 1.0 L Levy # (Auto) 0.8 Eos # (Auto) 0.0 Baso # (Auto) 0.0 Abs Immat Gran (auto) 0.06 H Absolute Neuts (auto) 11.2 H Absolute Nucleated RBC 0.000 Nucleated RBC % (auto) 0.0 PT INR O2 Saturation 97.0 ABG pH at Pt Temp 7.38 ABG pCO2 at Pt Temp 55 H ABG pO2 at Pt Temp 99 ABG HCO3 33 H ABG Base Excess (Actual) 6.8 VBG pH VBG pCO2 VBG pO2 VBG HCO3 VBG O2 Saturation VBG Base Excess Anion Gap Estim Creat Clear Calc Estimated GFR POC Glucose Random Glucose Lactic Acid Lactic Acid F/U @ 2Hr Lactic Acid F/U @ 4Hr 1.8 Calcium Magnesium Total Bilirubin AST ALT Alkaline Phosphatase Troponin I High Sens B-Natriuretic Peptide Total Protein Albumin Urine Color Urine Appearance Urine pH Ur Specific [place] Urine Protein Urine Glucose (UA) Urine Ketones Urine Blood Urine Nitrite Ur Leukocyte Esterase Urine RBC Urine WBC Ur Squamous Epith Cells Urine Bacteria Hyaline Casts 01/28/23 01/28/23 01/28/23 06:44 07:36 11:15 MCV MCH MCHC RDW Plt Count MPV Immature Gran % (Auto) Neut % (Auto) Lymph % (Auto) Levy % (Auto) Eos % (Auto) Baso % (Auto) Lymph # (Auto) Levy # (Auto) Eos # (Auto) Baso # (Auto) Abs Immat Gran (auto) Absolute Neuts (auto) Absolute Nucleated RBC Nucleated RBC % (auto) PT INR O2 Saturation ABG pH at Pt Temp ABG pCO2 at Pt Temp ABG pO2 at Pt Temp ABG HCO3 ABG Base Excess (Actual) VBG pH VBG pCO2 VBG pO2 VBG HCO3 VBG O2 Saturation VBG Base Excess Anion Gap 13 Estim Creat Clear Calc 63.2 Estimated GFR > 60 POC Glucose 131 H 130 H Random Glucose 152 H Lactic Acid Lactic Acid F/U @ 2Hr Lactic Acid F/U @ 4Hr Calcium 9.9 Magnesium Total Bilirubin AST ALT Alkaline Phosphatase Troponin I High Sens B-Natriuretic Peptide Total Protein Albumin Urine Color Urine Appearance Urine pH Ur Specific [place] Urine Protein Urine Glucose (UA) Urine Ketones Urine Blood Urine Nitrite Ur Leukocyte Esterase Urine RBC Urine WBC Ur Squamous Epith Cells Urine Bacteria Hyaline Casts Assessment and Plan (1) Sepsis: Status: Acute (2) Hypertensive urgency: Status: Acute Plan 83-year-old male with history advanced dementia, [id number]-fejirzfuf type 2 diabetes, hypertension, GERD, hyperlipidemia, history of stroke with sequela of dysarthria, and history of NSTEMI admitted for RLL pneumonia with sepsis. #Acute hypoxic resp failure due to PNA, sepsis -treat underlying pna, O2 supplement, presently on high flow #RLL pneumonia with sepsis, improving -continue -IV ceftriaxone and azithromycin (initiated 01/27) -guaifenesin for cough -albuterol p.r.n. -sputum culture, strep pneumo antigen, and Legionella antigen pending #Respiratory acidosis- resolved -2/2 to above -improved with bipap and compensated # orthopnea -CXR with possible cardiomegaly and possible venous congestion -BNP only 135, no pedal edema -Sx more likely r/t above. Will rule out CHF with echocardiogram # [id number] type 2 diabetes with hyperglycemia -POC glucose -diabetic diet -Humalog on sliding scale -hold metformin # hypertension-continue enalapril -monitor blood pressures # GERD -continue PPI, famotidine # CAD/HLD -continue ASA, statin # advanced dementia, unspecified type -continue memantine DVT prophylaxis-Lovenox Do not intubate Need for inaptient: sespsis, PNA and respiratory failure treatment not able to do so in SNF at this time prognosis is poor Time Spent With Patient Time: Total time managing care of this patient today ____ minutes. Quality Stroke Does the patient have a stroke diagnosis?: No VTE Prior VTE?: No VTE Risk Level:: Medical - moderate - high VTE Device Contraindication: Treatment Not Indicated VTE Drug Contraindication: N/A - Med Ordered
--- NOTE | 2023-01-28 13:43 | MHC.CLN ---
RE: CONSULT PT WITH INCREASED NUTRITION RISK R/T LOW CECILE DIET RX: 2000DM CHOPPED -APPROPRIATE MONITOR PO INTAKE CLOSELY IF POOR X3 DAYS <25%; RECOMMEND ADDING NUTRITION SUPPLEMENT
--- NOTE | 2023-01-28 15:04 | MHC.CM.PN ---
Addendum entered by Shirley Wills RN 01/28/23 15:13: IMM 01/28/23 TO BE SENT VIA MAIL TO DTR/HCP RYLEE Original Note: CM ATTEMPTED TO CONTACT PT'S DTR/HCP FERNIE [phone] AT 2:55PM VIA PHONE DISABILITY PROGRAM NAVIGATOR, NO ANSWER AND DETAILED MESSAGE LEFT, CM ALSO CHECKED PT ROOM AND NO FAMILY MEMBERS AT BEDSIDE. ASSESSMENT COMPLETED FROM PREVIOUS D/C. PT AND MOVED HERE FROM IN LAST YEAR SO THEY COULD BE CARED FOR BY DTR/JIAN AND AMBER SANDOVAL WHO IS A RESTORATION OFFICER, PT PREVIOUSLY HAD USED A CANE/WALKER FOR AMBULATION, PCP IS [facility] AND HCP ON FILE, CM UNABLE TO CONFIRM COVID VAX STATUS HOWEVER WILL REQUEST INFO ONCE FAMILY RETURNS CALL. PER HOSPITALIST PLAN FOR GOALS OF CARE DISCUSSION W/FAMILY, DISPO PENDING OUTCOME.
[2023-01-28 16:09] LABS: Glucose, Whole Blood 152 mg/dL (60-115)
--- NOTE | 2023-01-28 16:14 | PC.NURSE ---
On 01/27 antibiotics were hung by this RN at 1849h for pt Toni VILLALTA after the second set of blood cultures were drawn by Abbie PACE at 1848h. Both staff members were present in pts room at this time, resulting in scanning errors at the time of collection and administration.
[2023-01-28 19:48] LABS: Glucose, Whole Blood 138 mg/dL (60-115)
[2023-01-28] MEDS: cefTRIAXone sodium 1 GM in 0.9 % Sodium Chloride 50 ML IV (22:59)
[2023-01-28] MEDS: Enoxaparin Sodium 40 MG/0.4 ML SYRINGE SUBCUT (22:59)
[2023-01-29] VITALS (7 sets, daily range): BP systolic 152–192; BP diastolic 82–96; PULSE 63–112; RESP 16–22; TEMP 36.1–37.3; O2SAT 86–97
[2023-01-29] MEDS: Azithromycin 500 MG in 0.9 % Sodium Chloride 250 ML 125 MG IV (00:57)
[2023-01-29] MEDS: 0.9 % Sodium Chloride Flush 3 ML SYRINGE IVFLUSH ×3 (00:57→15:05)
[2023-01-29 06:32] LABS: Hematocrit 41.6 % (42.0-52.0); Hemoglobin 13.3 g/dl (14.0-18.0); Mean Corpuscular Hemoglobin 29.8 pg (27.0-33.0); Mean Corpuscular Volume 93.1 fL (80.0-98.0); Mean Platelet Volume 10.2 fL (9.4-12.4); Platelet Count 253 X10*3/uL (160-400); Red Blood Count 4.47 X10*6/uL (4.60-5.80); Red Cell Distribution Width 13.8 % (11.0-16.0); White Blood Count 10.6 X10*3/uL (4.8-10.8)
[2023-01-29] MEDS: Omeprazole 20 MG CAPSULE.DR PO (06:39)
[2023-01-29 07:01] LABS: Anion Gap 11 (12-20); Blood Urea Nitrogen 19 mg/dL (9-16); Calcium 10.4 mg/dL (8.4-10.2); Carbon Dioxide 32 mmol/L (22-29); Chloride 109 mmol/L (96-108); Creatinine Clr Calc Pharmacy 63.2; Estimated Glomerular Filt Rate > 60; Glucose Random 139 mg/dL (60-115); Potassium 4.1 mmol/L (3.3-5.1); Sodium 148 mmol/L (135-145)
[2023-01-29 07:23] LABS: Glucose, Whole Blood 151 mg/dL (60-115)
[2023-01-29] MEDS: Aspirin 81 MG TAB.CHEW PO (08:17)
[2023-01-29] MEDS: Cyanocobalamin (Vitamin B-12) 1,000 MCG TABLET 1000 MCG PO (08:17)
[2023-01-29] MEDS: Memantine HCl 5 MG TABLET PO (08:18)
--- NOTE | 2023-01-29 08:38 | HO.PM.IMPN ---
Subjective Subjective Date of Service: 01/29/23 Interval History: f/u on sepsis, pna and acute resp failure interval history: He is more alert, sitting on bed, conversing yet confused, RN reports that he aspirated with meds with precipitous drop in O2 into 80s Physical Exam Vital Signs: Vital Signs: Last Vital Signs Temp 99.1 F 01/29/23 07:48 Pulse 94 01/29/23 07:48 Resp 18 01/29/23 07:48 BP 192/96 H 01/29/23 07:48 Pulse Ox 97 01/29/23 07:48 O2 Del Method High Flow Nasal C annula 01/29/23 07:48 O2 Flow Rate 45 01/28/23 23:29 FiO2 80 01/28/23 23:29 Oxygen Flow Rate 3.5 01/27/23 17:45 BMI result Body Mass Index 23.4 Const: Other: General: frail, confused Resp: rhonchi marguerite CVS: S1,S2,RRR GI: +BS, NT, no distention Skin: No rash Neuro: motor grossly intact Psych: flat Objective Data Active Medications Acetaminophen (Acetaminophen 325 Mg Tablet) 650 mg PO Q6H PRN PRN Reason: Pain, Mild (Pain Scale 1-3) Last Admin: 01/28/23 01:59 Dose: 650 mg Documented By: BESSIE Albuterol Sulfate (Albuterol Sulfate (0.083%) 2.5 Mg/3 Ml Vial.Neb) 2.5 mg INHALE RQ4H PRN PRN Reason: cough, sob Aspirin (Aspirin 81 Mg Tab.Chew) 81 mg PO DAILY [facility] Last Admin: 01/29/23 08:17 Dose: 81 mg Documented By: DANIEL Atorvastatin Calcium (Atorvastatin Calcium 40 Mg Tablet) 40 mg PO BEDTIME [facility] Last Admin: 01/28/23 22:43 Dose: Not Given Documented By: BESSIE Non-Admin Reason: Patient Condition Contraindication Cyanocobalamin (Cyanocobalamin (Vitamin B-12) 1,000 Mcg Tablet) 1,000 mcg PO DAILY [facility] Last Admin: 01/29/23 08:17 Dose: 1,000 mcg Documented By: DANIEL Docusate Sodium (Docusate Sodium 100 Mg Capsule) 100 mg PO DAILY PRN PRN Reason: Constipation Enalapril Maleate (Enalapril Maleate 5 Mg Tablet) 5 mg PO DAILY [facility]; Protocol Last Admin: 01/29/23 08:17 Dose: 5 mg Documented By: DANIEL Enoxaparin Sodium (Enoxaparin Sodium 40 Mg/0.4 Ml Syringe) 40 mg SUBCUT Q24H [facility] Last Admin: 01/28/23 22:59 Dose: 40 mg Documented By: BESSIE Glucose (Glucose Gel 15 Gm Gel..Gram.) 15 gm PO Q15M PRN; Protocol PRN Reason: per Hypoglycemia Standing Ord. Guaifenesin (Guaifenesin 200 Mg/10 Ml 10 Ml Liquid) 10 ml PO Q4H PRN PRN Reason: Cough Ceftriaxone Sodium 1 gm/ (Sodium Chloride) 50 mls @ 100 mls/hr IV Q24H [facility] Last Infusion: 01/29/23 00:50 Dose: 0 mls/hr Documented By: BESSIE Azithromycin 500 mg/ Sodium (Chloride) 250 mls @ 125 mls/hr IV Q24H [facility] Stop: 01/30/23 01:14 Last Infusion: 01/29/23 04:07 Dose: 0 mls/hr Documented By: BESSIE Dextrose (D10) 250 mls @ 750 mls/hr IV Q15M PRN; Protocol PRN Reason: per Hypoglycemia Standing Ord. Insulin Human Lispro (Insulin Lispro 100 Unit/Ml 3 Ml Vial) 0 unit SUBCUT QIDACHS [facility]; Protocol Last Admin: 01/29/23 08:12 Dose: Not Given Documented By: DANIEL Non-Admin Reason: nursing judgment/limited PO intake Memantine (Memantine Hcl 5 Mg Tablet) 5 mg PO BID [facility] Last Admin: 01/29/23 08:18 Dose: 5 mg Documented By: DANIEL Omeprazole (Omeprazole 20 Mg Capsule.) 20 mg PO DAILY@0630 [facility] Last Admin: 01/29/23 06:39 Dose: 20 mg Documented By: BESSIE Ondansetron HCl (Ondansetron Hcl 4 Mg/2 Ml Vial) 4 mg IVPUSH Q8H PRN PRN Reason: Nausea and Vomiting Sodium Chloride (0.9 % Sodium Chloride Flush 3 Ml Syringe) 3 ml IVFLUSH QSHIFT [facility] Last Admin: 01/29/23 08:17 Dose: 3 ml Documented By: DANIEL Trazodone HCl (Trazodone Hcl 50 Mg Tablet) 50 mg PO BEDTIME PRN PRN Reason: Insomnia Last Admin: 01/28/23 01:59 Dose: 50 mg Documented By: BESSIE Labs 01/29/23 06:20 01/29/23 06:20 Labs: Laboratory Results - last 24 hr 01/28/23 01/28/23 01/28/23 11:15 15:58 19:44 MCV MCH MCHC RDW Plt Count MPV Absolute Nucleated RBC Nucleated RBC % (auto) Anion Gap Estim Creat Clear Calc Estimated GFR POC Glucose 130 H 152 H 138 H Random Glucose Calcium 01/29/23 01/29/23 01/29/23 06:20 06:20 07:13 MCV 93.1 MCH 29.8 MCHC 32.0 RDW 13.8 Plt Count 253 MPV 10.2 Absolute Nucleated RBC 0.000 Nucleated RBC % (auto) 0.0 Anion Gap 11 L Estim Creat Clear Calc 63.2 Estimated GFR > 60 POC Glucose 151 H Random Glucose 139 H Calcium 10.4 H Microbiology Microbiology Results: Microbiology 01/27/23 18:48 Blood Culture - Preliminary Blood - Venous No growth after 24 hours. 01/27/23 18:48 Blood Culture - Preliminary Blood - Venous No growth after 24 hours. Assessment and Plan (1) Sepsis: Status: Acute Plan 83-year-old male with history advanced dementia, [id number] type 2 diabetes, hypertension, GERD, hyperlipidemia, history of stroke with sequela of dysarthria, and history of NSTEMI admitted for RLL pneumonia with sepsis. #Acute hypoxic resp failure due to likely aspiration PNA, sepsis -treat underlying PNA, O2 supplement, presently on high flow which should be continue -NPO until swallow evaluation #RLL pneumonia with sepsis, -continue -IV ceftriaxone and azithromycin (initiated 01/27) -guaifenesin for cough -albuterol p.r.n. -sputum culture, strep pneumo antigen, and Legionella antigen pending #Respiratory acidosis- -improved with bipap and compensated # orthopnea -CXR with possible cardiomegaly and possible venous congestion -BNP only 135, no pedal edema -Sx more likely r/t above. Will rule out CHF with echocardiogram # [id number] type 2 diabetes with hyperglycemia -POC glucose -diabetic diet -Humalog on sliding scale -hold metformin # hypertension-continue enalapril -monitor blood pressures # GERD -continue PPI, famotidine # CAD/HLD -continue ASA, statin # advanced dementia, unspecified type -continue memantine #Dysphagia--swallow eval DVT prophylaxis-Lovenox Do not intubate Need for inaptient: sespsis, PNA and respiratory failure treatment not able to do so in SNF at this time prognosis is poor, will discuss goals of care with HCP Time Spent With Patient Time: Total time managing care of this patient today ____ minutes. Quality Stroke Does the patient have a stroke diagnosis?: No VTE Prior VTE?: No VTE Risk Level:: Medical - moderate - high VTE Device Contraindication: Treatment Not Indicated VTE Drug Contraindication: N/A - Med Ordered
[2023-01-29 11:08] LABS: Adenovirus PCR Not Detected (Not Detect.); Bordetella parapertussis PCR Not Detected (Not Detect.); Bordetella pertussis PCR Not Detected (Not Detect.); Chlamydia pneumoniae PCR Not Detected (Not Detect.); Coronavirus 229E PCR Not Detected (Not Detect.)
[2023-01-29 11:09] LABS: Coronavirus HKU1 PCR Not Detected (Not Detect.); Coronavirus NL63 PCR Not Detected (Not Detect.); Coronavirus OC43 PCR Not Detected (Not Detect.); Human metapneumovirus PCR Not Detected (Not Detect.); Influenza A PCR Not Detected (Not Detect.); Influenza B PCR Not Detected (Not Detect.); Mycoplasma pneumoniae PCR Not Detected (Not Detect.); Parainfluenza 1 PCR Not Detected (Not Detect.); Parainfluenza 2 PCR Not Detected (Not Detect.); Parainfluenza 3 PCR Not Detected (Not Detect.); Parainfluenza 4 PCR Not Detected (Not Detect.); RSV PCR Not Detected (Not Detect.); Rhino/Enterovirus PCR Not Detected (Not Detect.); SARS-CoV-2 PCR Not Detected (Not Detect.)
[2023-01-29 11:31] LABS: Glucose, Whole Blood 171 mg/dL (60-115)
--- NOTE | 2023-01-29 12:42 | MHC.SLORD ---
Speech Language Pathology Order Status: SCRAP PICKER received order for bedside swallow eval. RN reported pt aspirated w/ meds w/ drop in 02 into 80s. Per RN, pt seemed to tolerate crushed pills in pudding at first, but when given a sip of honey thickened liquid to shanta bite of pudding, pt w/ drop in 02 sat, began coughing, was seen by RT. Pt w/ RLL PNA w/ sepsis. SCRAP PICKER attempted to wake pt w/ SPA MANAGER this morning. Pt initially opened his eyes for few seconds, then falling back asleep. SPA MANAGER and SCRAP PICKER were unable to wake pt again. Pt not appropriate for swallow eval or PO at this time d/t somnolent state. Recommend continue NPO status d/t decreased responsiveness, high aspiration risk. RN to contact SCRAP PICKER should there be any change in pt's status later. Otherwise, SCRAP PICKER is available for call-in over the weekend. Advised , RN, RD via [employer].
[2023-01-29] MEDS: Dextrose 5 % and 0.45 % NaCl 1,000 ML 125 ML IVCONT (15:01)
--- NOTE | 2023-01-29 16:11 | MHC.CM.PN ---
Emr reviewed, per hospitalist pt remains hypoxic and aspirating, no plan for d/c at this time, cm will cont to follow d/c needs.
[2023-01-29 16:19] LABS: Glucose, Whole Blood 261 mg/dL (60-115)
[2023-01-29] MEDS: Morphine Sulfate 2 MG/ML CARTRIDGE IM (16:42)
[2023-01-29] MEDS: Scopolamine 1.5 MG PATCH.TD.3 TRANSDERMA (16:49)
[2023-01-29] MEDS: Morphine Sulfate 2 MG/ML CARTRIDGE IVPUSH (18:03)
--- NOTE | 2023-01-29 19:33 | PC.NURSE ---
Pt this am was slightly verbal, agitated, attempting to get OOB, dyspnic on high flow o2. Per diet/recs, gave pt PO meds crushed in pudding with sips of honey thick liquids. Pt appeared to aspirate with the liquids, sats dropped to mid 80s%. RT and MD were made aware, and with position and adjustments on high flow were able to get sats up to high 80s%. Pt was held NPO pending speech and swallow evaluation but was unable to participate with therapist d/t somnolence. At afternoon vitals pt's sats were found to be 86% and MD spoke with family about plan. Upon reassessment with RT pt's sats had dropped to 60% and pt was gasping for air. RN and RT initiated non-rebreather on top of high flow. 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 Morphine 2mg q1r PRN and scopolamine patch administered for comfort.
--- NOTE | 2023-01-29 19:52 | PM.EVENT ---
Event Note Date of Service: 01/29/23 Event Note: I was called to patient's bedside to pronounce the patient. No spontaneous movements were present. There was no response to verbal or tactile stimulus. Pupils were mid dilated and fixed. No breath sounds were appreciated over either lung field. No carotid pulses were palpable. No heart sounds were auscultated over entire precordium. Patient was on comfort measures only. Patient pronounced on 01/29/2023 at 19:45. Offered condolences to family members at bedside. Questions answered Time Spent With Patient Time: Total time managing care of this patient today ____ minutes.
--- NOTE | 2023-01-29 22:58 | PC.NURSE ---
Called to pt room by PCT as pt found with no respirations and pt's family at bedside stated he had passed. No respirations or heartbeat noted. support offered to family and MD notified of pt's passing. MD Christy came to pronounce. ID organ bank notified and pt declined for donation. [facility] staff Mamie Le, referral # [id number].
--- NOTE | 2023-01-30 06:58 | PM.DDS ---
Discharge Sum: Prov Provider Primary care physician: Jazmin Rosenbaum MD Discharge Sum: Diag Contributing Factors (1) Sepsis: Discharge Sum: Summary Date and Time Date of admission: 01/27/23 21:52 Date of : 01/29/23 Time of : 19:45 Summary Details: Chief Complaint: sob, cough 83-year-old male with history advanced dementia, [id number] type 2 diabetes, hypertension, GERD, hyperlipidemia, history of stroke with sequela of dysarthria, and history of NSTEMI presented to the ED earlier today with his daughter and son-in-law for evaluation of upper respiratory symptoms ongoing for 4 days.? He is unable to provide much history due to his dysarthria and dementia and history is obtained from his daughter and son-in-law.? Per their report, family members in the home and had an upper respiratory infection which she contracted about 4 days ago with productive cough and subjective fevers.? This morning they noted marked shortness of breath, specifically orthopnea prompting their visit to the ED. No history CHF. On arrival, patient hypoxic to 78% placed on Oxy mass at 3.5 L.? However patient with increased work of breathing with tachypnea up to 38 and continued to desaturate despite escalation to high-flow nasal cannula.? Briefly placed on BiPAP and successfully titrated back to nasal cannula now maintaining oximetry 98-100%.? There is a leukocytosis of 15.8.? Renal function baseline.? There is a mild hypernatremia 146 and mild hypercapnia 30, electrolytes otherwise normal.? Glucose 212.? Initial lactic acid 2.4.? BNP 135.? Urinalysis not indicative of infection.? Negative for COVID-19.? CXR showing hypoexpanded lungs with chronic appearing reticular markings but no acute process.? Per ED provider, bedside ultrasound was performed showing a right lower lobe infiltrate with Glynn B lines.? Prior to BiPAP, pH 7.27, pCO2 68, PO2 35, bicarb 32.? Post BiPAP, pH improved to 7.41, pCO2 53, PO2 41, bicarb 34. Hospital course: This patient with multiple medical as above and notable advnced dementia was admitted due to sob cough and cough and found to have severe acute hypoxic respiratory failure due sepsis from pneumonia, complicated by encephalopathy, acute lactic acidosis, respiratory acidosos, hypernatremia. He initally required BiPAP support and later was transitioned to high flow O2, he was treated with IV antibitiocs, during course of hospitalization, he continued to demonstrate sisngs and iva aspiration and was deemed unsafe to swallow. By the 3 rd day of hospitalization his oxygen continue to drop despite maximimum O2 support with high flow and NRB into 60s. Follow discussion with family with goals of care as his prognosis was poor, he was made comfort care only to pass away hours later. He on 01/29/23 at 19.45 family was present. Cause of Sepsis due to pneumonia, complicated by severe acute hypoxic respiratory failuyre Final diagnoses. Acute hyppoxc, hypercarbic respiratory failuyre Sepsis due to pneumonia Aspiration pneumonia Metabolic encephalopathy respiratory Acidosis metabolica alkalosis Acute lactic acidosis Hypernatremia Dementia Additional Data Attending physician: Jean-Pierre Herron MD
[2023-02-04 04:08] LABS: Strep Pneumo Ag urine Not Detected (Not Detected)
[2023-02-04 08:09] LABS: Legionella Ag Urine Not Detected (Not Detected)
== END 2023-01-29 21:30 | disposition expired | DRG 193 ==
LOC: HO.ED 19:23 → HO.EDOVER 22:07 → HO.IMC 23:33
PROVIDERS: Student in an Organized Health Care Education/Training Program; Admitting Provider Physician Assistant; Emergency Provider Student in an Organized Health Care Education/Training Program; PCP General Practice; Visit Provider Internal Medicine
DX: J18.9 Pneumonia, unspecified organism (principal); J96.01 Acute respiratory failure with hypoxia; J96.02 Acute respiratory failure with hypercapnia; E87.4 Mixed disorder of acid-base balance; E87.0 Hyperosmolality and hypernatremia; E11.65 Type 2 diabetes mellitus with hyperglycemia; F03.90 Unspecified dementia, unspecified severity, without behavioral disturbance, psychotic disturbance, mood disturbance, and anxiety; I25.10 Atherosclerotic heart disease of native coronary artery without angina pectoris; E78.5 Hyperlipidemia, unspecified; I16.0 Hypertensive urgency; I25.2 Old myocardial infarction; I69.322 Dysarthria following cerebral infarction; I10 Essential (primary) hypertension; Z20.822 Contact with and (suspected) exposure to COVID-19; Z79.82 Long term (current) use of aspirin; Z79.84 Long term (current) use of oral hypoglycemic drugs; Z79.899 Other long term (current) drug therapy
CPT/HCPCS: 36415; 36600; 71045; 71250; 80048; 80053; 81001; 81003; 82803; 82947; 83605; 83735; 83880; 84484; 85025; 85027; 85610; 87040; 87449; 87633; 87899; 92950; 93005; 93306; 94640; 99285; J0456; J0696; J1650; J2270; J2543